=== PATIENT | female | born 1950 | race Caucasian/White ===

== ENCOUNTER 2021-01-31 23:23 | Observation (INO) | payer MEDICARE, OTHER, SELFPAY ==
--- NOTE | 2021-01-31 23:33 | ECG_ITS ---
Measurements Intervals [place] Rate: 71 P: [place]: 0 QRS: 3 QRSD: 89 T: -6 QT: 357 QTc: 389 Interpretive Statements ATRIAL FIBRILLATION BORDERLINE ST-T WAVE ABNORMALITY- INFERIOR LEADS BASELINE ARTIFACT- I, II, III, AVR, AVL, AVF, V1-V6 ABNORMAL ECG Electronically Signed On 02-01-2021 6:29:06 CDT by Joseph Jay D.O.
[2021-01-31 23:54] VITALS: BP 130/77; PULSE 81; RESP 16; TEMP 36.6; O2SAT 97
[2021-02-01] VITALS (8 sets, daily range): BP systolic 92–110; BP diastolic 45–80; PULSE 60–81; RESP 16–20; TEMP 36.2–36.4; O2SAT 96–98; BMI 42.2
[2021-02-01] MEDS: SODIUM CHLORIDE 0.9% IV 500 ML 999 ML IV CONT (00:34)
[2021-02-01] MEDS: ASPIRIN 325 MG ENTERIC TABLET PO (00:34)
[2021-02-01 00:43] LABS: Basophils Absolute Auto 0.06 K/mm3 (0.00-0.10); Basophils Percent Auto 0.5 % (0.0-1.0); Eosinophils Absolute Auto 0.07 K/mm3 (0.02-0.50); Eosinophils Percent Auto 0.6 % (1.0-6.0); Hematocrit 44.3 % (35.0-42.0); Hemoglobin 14.7 g/dL (11.7-13.8); Immature Granulocyte Absolute 0.04 K/mm3 (0.00-0.00); Immature Granulocyte Percent A 0.3 % (0.0-0.0); Lymphocytes Absolute Auto 2.32 K/mm3 (1.10-4.50); Lymphocytes Percent Auto 19.4 % (18.0-42.0); Mean Corpuscular HGB Conc 33.2 g/dL (32.0-36.0); Mean Corpuscular Hemoglobin 30.2 pg (27.0-31.0); Mean Platelet Volume 10.1 fl (9.2-11.8); Monocytes Absolute Auto 0.69 K/mm3 (0.10-0.90); Monocytes Percent Auto 5.8 % (2.0-11.0); Neutrophils Absolute Auto 8.8 K/mm3 (1.7-7.2); Neutrophils Percent Auto 73.4 % (50.0-70.0); Platelet Count Result 337 K/mm3 (150-420); Red Blood Count 4.87 M/mm3 (4.20-5.40); Red Cell Distribution Width 14.3 % (11.6-14.4)
[2021-02-01 01:10] LABS: Alanine Aminotransferase 33 U/L (14-59); Albumin Level 4.1 g/dL (3.4-5.0); Alkaline Phosphatase 109 U/L (46-116); Anion Gap 13 mmol/L (8-16); Aspartate Amino Transferase 27 U/L (15-37); Bilirubin,Total 0.3 mg/dL (0.00-1.00); Blood Urea Nitrogen 24 mg/dL (7-18); Calcium 9.6 mg/dL (8.5-10.1); Carbon Dioxide 25 mmol/L (21-32); Chloride 100 mmol/L (98-108); Estimated CRCL calculation 41 ml/min; Estimated Glomerular Filt Rate 36; Ethanol < 3 mg/dL (0-6); Glucose 111 mg/dL (70-99); NT Pro B Type Natriuretic Pept 403 pg/mL (0-125); Osmolality Calculated 291 mOsm/kg (285-295); Potassium 4.3 mmol/L (3.5-5.1); Sodium 138 mmol/L (136-145); Thyroid Stimulating Hormone 5.34 uIU/mL (0.36-3.74); Total Protein 8.5 g/dL (6.4-8.2); Troponin I 6.5 ng/L (0.00-60.4)
[2021-02-01 01:45] LABS: Amphetamine Screen Urine Negative (Negative); Barbiturate Screen Urine Negative (Negative); Benzodiazepines Screen Urine Negative (Negative); Cannabinoid Screen Urine Negative (Negative); Cocaine Screen Urine Negative (Negative); Methadone Screen Urine Negative (Negative); Opiate Screen Urine Negative (Negative); Phencyclidine Screen Urine Negative (Negative)
--- NOTE | 2021-02-01 02:00 | ECG_ITS ---
Measurements Intervals [place] Rate: 78 P: [place]: 0 QRS: 10 QRSD: 88 T: -9 QT: 384 QTc: 438 Interpretive Statements ATRIAL FIBRILLATION NONSPECIFIC ST & T-WAVE ABNORMALITY- ANT/INF LEADS BASELINE ARTIFACT- I, III, AVL, AVF ABNORMAL ECG Electronically Signed On 02-01-2021 7:29:01 CDT by Joseph Jay D.O.
--- NOTE | 2021-02-01 02:18 | ED.ARRPALP ---
HPI - Arrhythmia/Palpitations General Chief Complaint: Arrhythmia/Palpitations Stated Complaint: high blood presser Time Seen by Provider: 01/31/21 23:25 Source: patient, family and RN notes reviewed Mode of arrival: ambulatory Limitations: no limitations History of Present Illness complaint: skipped beats , palpitations and irregular heart beat Onset (ago): hour(s) (2) Duration: constant Severity: moderate Context: occurred during rest Associated symptoms: denies other symptoms Treatments prior to arrival: other (none) Related Data Home Medications Medication Instructions Recorded Confirmed amlodipine 10 mg PO DAILY 01/31/21 01/31/21 atenolol 25 mg PO DAILY 01/31/21 01/31/21 hydrochlorothiazide 25 mg PO DAILY 01/31/21 01/31/21 lisinopril 20 mg PO DAILY 01/31/21 01/31/21 lovastatin 20 mg PO DAILY 01/31/21 01/31/21 olmesartan 40 mg PO DAILY 01/31/21 01/31/21 Allergies Allergy/AdvReac Type Severity Reaction Status Date / Time No Known Allergies Allergy Verified 01/31/21 23:50 Review of Systems Review of Systems: All systems reviewed & are unremarkable except as noted in HPI and below Constitutional: Constitutional: Reports as per HPI and Reports no additional constitutional complaints Eyes: Eyes: Reports as per HPI and Reports no additional eye complaints ENT: Reports system reviewed and no additional complaints, except as documented and Reports as per HPI Cardiovascular: Cardiovascular: Reports as per HPI and Reports no additional cardiovascular complaints Comments: irregular HR Respiratory: Respiratory: Reports as per HPI and Reports no additional respiratory complaints Gastrointestinal: Gastrointestinal: Reports as per HPI and Reports no additional gastrointestinal complaints Genitourinary: Genitourinary: Reports no additional female genitourinary complaints and Reports as per HPI Musculoskeletal: Musculoskeletal: Reports no additional musculoskeletal complaints and Reports as per HPI Integumentary/Breasts: Skin/Breast: Reports system reviewed and no additional complaints, except as docu and Reports as per HPI Neurologic: Reports system reviewed and no additional complaints, except as documented and Reports as per HPI Psychiatric: Psychiatric: Reports no additional psychiatric complaints and Reports as per HPI Endocrine: Endocrine: Reports no additional endocrine complaints and Reports as per HPI Hematologic/Lymphatic: Hematologic/Lymphatic: Reports no additional hematologic/lymphatic complaints and Reports as per HPI Allergic/Immunologic: Allergic/Immunologic: Reports no additional allergic/immunologic complaints and Reports as per [facility] Past Medical History Medical History Chest pain at rest Social History Social History Smoking status: Never smoker Alcohol intake: never Substance use: never Substance use type: does not use Gender identity (if verbalized by the patient): Female Spiritual care concerns: No Exam Const: General: no acute distress and alert Nutritional Appearance: obese Orientation/consciousness: patient oriented x3 Limitations: no limitations HENMT: Ears: external ears normal and TM's normal bilaterally General nose exam: Normal external nose present and Normal nares present Mouth: Yes lip normal and Yes moist mucous membranes Teeth and gingiva: dentition normal Eyes: Conjunctivae: conjunctivae normal Pupils: Equal, round and reactive pupils present EOM: EOMs intact bilaterally Neck: Neck: normal visual inspection and no lymphadenopathy Chest: Chest palpation & inspection: normal inspection of the chest Resp: Effort & Inspection: normal respiratory effort Auscultation: clear to auscultation bilaterally Cardio: Rhythm: abnormal rhythm : General: Yes bladder normal to palpation and Yes no CVA tenderness Back/Spine/Pelvis: Back: no
--- NOTE | 2021-02-01 02:26 | PC.NURSE ---
Pt to be 23 hr obs to Rm 208, monitor continues to show A-fib, VSS, pt resting.
--- NOTE | 2021-02-01 04:48 | ADMGEN ---
This patient, Franchesca Blake, was admitted to 2nd Floor Room 208-2 at 0300. Patient oriented to hospital policies and general routines including ID bracelet, bed and alarms, visiting hours, pain management, procedures, bathroom and other care routines, personal items, smoking policy, room service/diet, and visiting hours. Information on how to activate the Rapid Response Team has been discussed. Patient are encouraged to report perceived risks to care and to ask questions if they do not understand what they are told or what they should do. Patient able to ambulate independently in room. A/O x4. IV present to left hand, 20g. Denies any pain or SOB. Initiated telemetry, current rate 69 Afib.
--- NOTE | 2021-02-01 04:50 | PC.NURSE ---
Patient valuable sheet filled out on paper form and placed in chart.
--- NOTE | 2021-02-01 05:10 | PC.NURSE ---
Dr Gaytan notified of patient's temp being 101.3 with new orders received.
[2021-02-01 05:52] LABS: Basophils Absolute Auto 0.04 K/mm3 (0.00-0.10); Basophils Percent Auto 0.6 % (0.0-1.0); Eosinophils Absolute Auto 0.02 K/mm3 (0.02-0.50); Eosinophils Percent Auto 0.3 % (1.0-6.0); Hematocrit 40.5 % (35.0-42.0); Hemoglobin 13.3 g/dL (11.7-13.8); Immature Granulocyte Absolute 0.02 K/mm3 (0.00-0.00); Immature Granulocyte Percent A 0.3 % (0.0-0.0); Lymphocytes Absolute Auto 1.58 K/mm3 (1.10-4.50); Lymphocytes Percent Auto 21.9 % (18.0-42.0); Mean Corpuscular HGB Conc 32.8 g/dL (32.0-36.0); Mean Corpuscular Hemoglobin 29.9 pg (27.0-31.0); Mean Platelet Volume 10.6 fl (9.2-11.8); Monocytes Absolute Auto 0.46 K/mm3 (0.10-0.90); Monocytes Percent Auto 6.4 % (2.0-11.0); Neutrophils Absolute Auto 5.1 K/mm3 (1.7-7.2); Neutrophils Percent Auto 70.5 % (50.0-70.0); Platelet Count Result 301 K/mm3 (150-420); Red Blood Count 4.45 M/mm3 (4.20-5.40); Red Cell Distribution Width 14.3 % (11.6-14.4); White Blood Count 7.2 K/mm3 (4.8-10.8)
[2021-02-01 06:14] LABS: Alanine Aminotransferase 30 U/L (14-59); Albumin Level 3.4 g/dL (3.4-5.0); Alkaline Phosphatase 91 U/L (46-116); Anion Gap 12 mmol/L (8-16); Aspartate Amino Transferase 20 U/L (15-37); Bilirubin,Total 0.3 mg/dL (0.00-1.00); Blood Urea Nitrogen 19 mg/dL (7-18); Carbon Dioxide 25 mmol/L (21-32); Chloride 104 mmol/L (98-108); Estimated CRCL calculation 46 ml/min; Estimated Glomerular Filt Rate 41; Free T4 Free Thyroxine 1.02 ng/dL (0.76-1.46); Glucose 106 mg/dL (70-99); Osmolality Calculated 294 mOsm/kg (285-295); Potassium 4.4 mmol/L (3.5-5.1); Sodium 141 mmol/L (136-145); Total Protein 7.2 g/dL (6.4-8.2)
[2021-02-01] MEDS: LOVASTATIN 20 MG TABLET PO (08:41)
[2021-02-01] MEDS: ENOXAPARIN 40 MG/0.4 ML SYRINGE SUB-Q (08:41)
[2021-02-01] MEDS: amLODIPine BESYLATE 5 MG TABLET 10 MG PO (08:42)
[2021-02-01] MEDS: hydroCHLOROthiazide 25 MG TABLET PO (08:42)
[2021-02-01] MEDS: OLMESARTAN MEDOXOMIL 20 MG TABLET 40 MG PO (08:42)
[2021-02-01] MEDS: atenoloL 25 MG TABLET PO (08:43)
[2021-02-01] MEDS: lisinopriL 20 MG TABLET PO (08:43)
[2021-02-01 10:42] LABS: Partial Thromboplastin Time 27.7 SEC (23.90-30.70); Prothrombin Time 10.6 Seconds (9.50-12.10)
[2021-02-01] MEDS: LEVOTHYROXINE SODIUM 100 MCG, LEVOTHYROXINE SODIUM 25 MCG 125 MCG PO (11:43)
[2021-02-01] MEDS: ENOXAPARIN 100 MG/ML SYRINGE 72 MG SUB-Q (11:44)
--- NOTE | 2021-02-01 13:37 | PM.SD2 ---
Same Day Admit/Disch: HPI History of Present Illness Chief complaint: AFIB HYPOTHYROID Narrative: Franchesca Blake is a 70 year old female that presented to emergency department per patient she just did not feel right and originally thought that her blood pressure was elevated. She has a past medical history of chest pain at rest hypertension and HDL. According to patient yesterday she just did not feel right she was not able to pinpoint exactly what she meant by that . She notes that most people think she is crazy when she tells him that she can tell when something is wrong with her body. She did note that she checked her blood pressure and it was elevated on able to tell me the exact numbers she also notes that her heart rate was elevated she notes it was 89 I informed patient that 89 is within normal limits. Patient notes that in the past when she felt different she will call and we will continue and feel better this time she did so and did not improve. This is when she decided to come to our emergency department. EKG indicated that she was A. fib with a heart rate of 78, WBCs 12.0, hemoglobin 14.7, hematocrit 44.3, platelet 337, PT 10.6, INR 1.0, sodium 138, potassium 4.3, BUN 24, creatinine 1.43, liver function test within normal limit, troponin 6.5, BUN 4 3, TSH 5.34 new onset A. fib with acute kidney injury and newly diagnosed hypothyroidism. Spoke with Dr. Roldan patient has an appointment today at 3:00 she will discharge with Lovenox weightbase and warfarin 5 mg follow-up PT/INR in 1 week. She will also discharged with Synthroid and repeat TSH within 6 weeks with results going to her primary care physician and her vendor relationship manager. I did talk to Dr. Bee with recommendation also called her primary care physician and updated his nurse on patient's current condition. The patient denies SOB, CP, palpitation, extremity numbness, lightheadedness, dizziness, constipation, diarrhea, chills, or fever. Patient notes her situation has improved and she is anxious for discharge PMF Past Medical History Medical History Chest pain at rest Family History Family History (Updated 02/01/21 @ 13:55 by ZAIRA Armstrong) Other Family history non-contributory Social History Social History Smoking status: Never smoker Alcohol intake: never Substance use: never Substance use type: does not use Gender identity (if verbalized by the patient): Female Spiritual care concerns: No Same Day Admit/Disch: Med Pre-admit Medications Home Medications Medication Instructions Recorded Confirmed Type amlodipine 10 mg PO DAILY 01/31/21 01/31/21 History atenolol 25 mg PO DAILY 01/31/21 01/31/21 History hydrochlorothiazide 25 mg PO DAILY 01/31/21 01/31/21 History lovastatin 20 mg PO DAILY 01/31/21 01/31/21 History olmesartan 40 mg PO DAILY 01/31/21 01/31/21 History enoxaparin [Lovenox] 112 mg SUBCUT Q12HR 10 Days 02/01/21 Rx #14.934 ml levothyroxine [Synthroid] 125 mcg PO DAILY@0630 90 Days #90 02/01/21 Rx tablet lisinopril 5 mg PO DAILY #30 tablet 02/01/21 Rx warfarin 5 mg PO DAILY #20 tablet 02/01/21 Rx Exam Narrative: GENERAL: This is a well-nourished, well-developed patient, in no apparent distress. HEAD: normocephalic, atraumatic. EYES: PERRL. Sclera clear/white. Vision is grossly intact. EARS: External ears normal, auditory canals clear and without drainage, TMs normal without perforation. Hearing grossly intact. NOSE: External nose normal with no obvious nasal discharge, nares without redness, no rhinorrhea. THROAT: Mucous membranes moist, posterior pharynx clear. NECK: Neck supple, non-tender without lymphadenopathy, masses or thyromegaly. CARDIOVASCULAR: Regular rate and rhythm without murmurs, gallops, or rubs. RESPIRATORY: Clear to auscultation. Breath sounds equal bilaterally. No wheezes, rales, or rhonchi. G
--- NOTE | 2021-02-01 14:30 | ECHO_ITS ---
Patient Info Name: Franchesca Blake Age: 70 years : 1950 Gender: Female Ht: 64 in Wt: 245 lbs BSA: 2.30 m2 HR: 57 bpm BP: 92 / 45 mmHg Technical Quality: Good Exam Date: 02/01/2021 1:39 PM Exam Location: [facility] Patient Status: Inpatient Admit Date: 02/01/2021 Staff Ordering Physician: Mahamed Sanchez Vacation Guide: Chetan Ibarra RDCS, RT Attending Provider: Camila Gaytan MD Referring Physician: Daniel MCGEE; Exam Type: CA echo doppler color flow Study Info Indications I48.1 - Persistent atrial fibrillation Complete two-dimensional, color flow and Doppler transthoracic echocardiogram is performed. Strain analysis performed. Summary 1. Complete two-dimensional, color flow and Doppler transthoracic echocardiogram is performed. 2. Left ventricular chamber dimension is normal. 3. Left ventricular systolic function is normal, estimated at 65-70%. 4. The left ventricular diastolic function is normal. 5. E/e' 7 is not elevated. 6. Global longitudinal strain is normal at -19.1%. 7. There is trace aortic valve regurgitation. 8. There is trace tricuspid valve regurgitation. 9. No pulmonary hypertension, estimated pulmonary arterial systolic pressure is 28 mmHg. Left Ventricle E/e' 7 is not elevated. Global longitudinal strain is normal at -19.1%. Left ventricular chamber dimension is normal. Left ventricular systolic function is normal, estimated at 65-70%. The left ventricular diastolic function is normal. Right Ventricle Right ventricular systolic function is normal and with normal TAPSE 2.6 cm.. Right ventricular chamber dimension is normal. Left Atria Left atrial chamber dimension is normal. Right Atria Right atrial chamber dimension is normal. Aortic Valve The aortic valve is trileaflet. There is no aortic valve stenosis. There is trace aortic valve regurgitation. Pulmonic Valve There is no pulmonic regurgitation. Mitral Valve There is no mitral valve stenosis. There is no mitral valve regurgitation. Tricuspid Valve There is trace tricuspid valve regurgitation. No pulmonary hypertension, estimated pulmonary arterial systolic pressure is 28 mmHg. Pericardium/Pleural There is no pericardial effusion. Inferior Vena Cava Normal inferior vena cava with >50% collapse upon inspiration consistent with normal right atrial pressure, 5 mmHg. Aorta The aortic root size at the sinus of Valsalva is normal. Left Ventricular Outflow Tract Name Value Normal LVOT 2D LVOT Diameter 2.0 cm LVOT Doppler LVOT Peak Velocity 138 cm/s LVOT Peak Gradient 8 mmHg LVOT Mean Gradient 4 mmHg LVOT VTI 31 cm LVOT VTI/AV VTI Ratio 0.7 LVOT Stroke Volume 98 ml Mitral Valve Name Value Normal MV Doppler
--- NOTE | 2021-02-01 14:58 | PC.NURSE ---
Patient discharged home transported by spouse via personal vehicle. Discharge instructions given and acknowledged understanding. IV site discontinued and removed prior to discharge. All personal property taken with patient and staff escorted patient to main entrance.
== END 2021-02-01 14:55 | disposition home or self-care (01) ==
LOC: CHSED 02-01 02:27 → CHS2ND 02-01 09:03
PROVIDERS: Nurse Practitioner; Admitting Provider Emergency Medicine; Emergency Provider Emergency Medicine; PCP Physician Assistant; Visit Provider Emergency Medicine
DX: I48.91 Unspecified atrial fibrillation (principal); I10 Essential (primary) hypertension; E03.9 Hypothyroidism, unspecified; E78.5 Hyperlipidemia, unspecified; R07.9 Chest pain, unspecified; Z79.899 Other long term (current) drug therapy
CPT/HCPCS: 36415; 80053; 80307; 83880; 84439; 84443; 84484; 85025; 85610; 85730; 93005; 93306; 96360; 96372; 99285; A9270; G0378; J1650; J7030; J7040

== ENCOUNTER 2021-02-05 08:11 | Outpatient (CLI) | payer MEDICARE, SELFPAY ==
[2021-02-05 08:35] LABS: INR 2.4; Prothrombin Time 24.4 Seconds (9.50-12.10)
== END 2021-02-05 08:12 | disposition home or self-care (01) ==
LOC: CHSLAB 08:14
PROVIDERS: PCP Physician Assistant; Visit Provider Internal Medicine Cardiovascular Disease
DX: I48.0 Paroxysmal atrial fibrillation (principal)
CPT/HCPCS: 36415; 85610

== ENCOUNTER 2021-02-12 08:10 | Outpatient (CLI) | payer MEDICARE, SELFPAY ==
[2021-02-12 08:55] LABS: INR 4.7; Prothrombin Time 46.5 Seconds (9.50-12.10)
[2021-02-12 11:11] LABS: Thyroid Stimulating Hormone Reflex 0.45 u/IU/mL (0.36-3.74)
== END 2021-02-12 08:11 | disposition home or self-care (01) ==
LOC: CHSLAB 08:12
PROVIDERS: PCP Physician Assistant; Visit Provider Nurse Practitioner
DX: I48.91 Unspecified atrial fibrillation (principal); E03.9 Hypothyroidism, unspecified
CPT/HCPCS: 36415; 84443; 85610

== ENCOUNTER 2021-02-18 07:53 | Outpatient (CLI) | payer MEDICARE, OTHER, SELFPAY ==
--- NOTE | 2021-03-14 14:55 | WPDSLEEPSTUD ---
Sleep Study Date of Study: 02/18/21 Ordering Provider: Joseph Jay DO Interpreting Physician: Liz Khalil MD Sleep Study Type: Polysomnogram Height: 1.63 m Weight: 106.594 kg Body Mass Index: 40.3 Neck Circumference (inches): 15 [place]: 4 Reason for Sleep Study Hypersomnia Sleep History Franchesca Blake is a 70 year old female with recent paroxysmal atrial fibrillation. She was suspected to have obstructive sleep apnea as a contributing factor. She also has hypertension and dyslipidemia. She does not awaken at night feeling short of breath, does not awaken at night with heartburn, belching or coughing. She rarely snores and is never loud enough that others complain about it. She does not have trouble sleeping with a cold. She does not wake up gasping for breath at night. She rarely has breathing problems at night observed by others. She does not sweat excessively at night. She does not notice her heart pounding or beating irregularly at night. She rarely falls asleep during the day, never involuntarily never while driving. She does not have loss of muscle tone with strong emotion. She does not have daytime difficulties due to excessive sleepiness, currently is retired. She does not feel paralyzed on waking or falling asleep. She rarely has vivid dreamlike scenes upon awakening or falling asleep. She does not feel afraid to go to sleep. She rarely has nightmares, rarely remembers her dreams, rarely has racing thoughts. She never feels sad or depressed. She rarely has anxiety. She does not have muscular tension, does not notice parts her body jerking and she does not kick at night. She does not have crawling and aching feelings in her legs. She denies any kind of leg pain at night. She does not have morning jaw pain. She rarely grinds her teeth during sleep. She is not bothered by pain during the day, is not awakened by pain at night. She does not wake up feeling stiff the morning with sore achy muscles are pain in the neck and spine. She does have palpitations. Normal bedtime is between 10:30 p.m. and 11:00 p.m. falling asleep within a few minutes, waking 2-3 times at night to urinate. She is able to return to sleep within 3 minutes. She wakes in the morning between 730 and 8:00 a.m.. Weekend schedule is the same. She estimates getting 6-7 hours of sleep at night. she takes naps in the afternoon or evening. A short nap may be refreshing. Most the time she feels adequate on waking. She feels better in the evening compared to the morning. Habits: nonsmoker. Caffeine 1-2 servings per day. No alcohol or recreational drugs. [facility] Past Medical History Medical History (Updated 03/14/21 @ 15:01 by Liz Khalil MD) Chest pain at rest Dyslipidemia Hypertension Hypothyroidism PAF (paroxysmal atrial fibrillation) Family History Family History Other Family history non-contributory Social History Social History Smoking status: Never smoker Alcohol intake: never Substance use: never Substance use type: does not use Gender identity (if verbalized by the patient): Female Spiritual care concerns: No Medications Home Medications Medication Instructions Recorded Confirmed Type amlodipine 10 mg PO DAILY 01/31/21 02/01/21 History atenolol 25 mg PO DAILY 01/31/21 02/01/21 History hydrochlorothiazide 25 mg PO DAILY 01/31/21 02/01/21 History lovastatin 20 mg PO DAILY 01/31/21 02/01/21 History olmesartan 40 mg PO DAILY 01/31/21 02/01/21 History enoxaparin [Lovenox] 112 mg SUBCUT Q12HR 10 Days 02/01/21 02/01/21 Rx #14.934 ml levothyroxine [Synthroid] 125 mcg PO DAILY@0630 90 Days #90 02/01/21 02/01/21 Rx tablet lisinopril 5 mg PO DAILY #30 tablet 02/01/21 02/01/21 Rx warfarin 2.5 mg tablet 2.5 mg PO DAILY #30 tablet 02/23/21 Rx warfarin 5 mg tablet 5 mg PO DAILY #20 tablet 03/05/21
[2021-03-14 14:56] VITALS: BMI 40.3
== END 2021-02-19 05:51 | disposition home or self-care (01) ==
LOC: ANHCSM 07:57
PROVIDERS: PCP Physician Assistant; Visit Provider Internal Medicine Cardiovascular Disease
DX: G47.10 Hypersomnia, unspecified (principal)
CPT/HCPCS: 95810

== ENCOUNTER 2021-03-19 08:58 | Outpatient (CLI) | payer MEDICARE, SELFPAY ==
[2021-03-19 09:31] LABS: INR 4.7; Prothrombin Time 47.1 Seconds (9.50-12.10)
== END 2021-03-19 08:59 | disposition home or self-care (01) ==
LOC: CHSLAB 09:00
PROVIDERS: PCP Physician Assistant; Visit Provider Internal Medicine Cardiovascular Disease
DX: I48.0 Paroxysmal atrial fibrillation (principal)
CPT/HCPCS: 36415; 85610

== ENCOUNTER 2021-03-26 04:11 | Emergency (ER) | payer MEDICARE, OTHER, SELFPAY ==
[2021-03-26 04:11] VITALS: BP 153/96; PULSE 68; RESP 20; TEMP 36.2; O2SAT 97
--- NOTE | 2021-03-26 04:20 | ECG_ITS ---
Measurements Intervals [place] Rate: 78 P: [place]: 0 QRS: 1 QRSD: 98 T: -21 QT: 379 QTc: 432 Interpretive Statements ATRIAL FIBRILLATION NONSPECIFIC ST & T-WAVE ABNORMALITY- ANT/INF LEADS BASELINE ARTIFACT- III, AVF ABNORMAL ECG Electronically Signed On 03-26-2021 7:35:32 CDT by Joseph Jay D.O.
--- NOTE | 2021-03-26 04:37 | ED.ARRPALP ---
HPI - Arrhythmia/Palpitations General Chief Complaint: Arrhythmia/Palpitations Stated Complaint: Irregular heart beat Source: patient and family Mode of arrival: ambulatory History of Present Illness HPI narrative: this is a 70-year-old female presents with her with some feeling of palpitations, with no chest pain no shortness of breath her heart rate is stable although patient has and was diagnosed with atrial fibrillation back in January is currently on Coumadin, and then recently saw her manager tax that told her that she was atrial fibrillation. Patient is not used to the fluttering in her chest, her heart rate is stable between 70 and 90 with normal blood pressure no shortness of breath no chest pain no abdominal pain no peripheral edema no fever chills. complaint: palpitations Onset (ago): month(s) Related Data Home Medications Medication Instructions Recorded Confirmed amlodipine 10 mg PO DAILY 01/31/21 03/26/21 hydrochlorothiazide 25 mg PO DAILY 01/31/21 03/26/21 lovastatin 20 mg PO DAILY 01/31/21 03/26/21 olmesartan 40 mg PO DAILY 01/31/21 03/26/21 atenolol 25 mg tablet 25 mg PO DAILY tablet 03/15/21 03/26/21 zolpidem 10 mg tablet 10 mg PO ONCE tablet 03/16/21 03/26/21 Allergies Allergy/AdvReac Type Severity Reaction Status Date / Time No Known Allergies Allergy Verified 03/15/21 15:10 Review of Systems Review of Systems: All systems reviewed & are unremarkable except as noted in HPI and below PMFSH Past Medical History Medical History Chest pain at rest Dyslipidemia Hypertension Hypothyroidism PAF (paroxysmal atrial fibrillation) Family History Family History Other Family history non-contributory Social History Social History Smoking status: Never smoker Alcohol intake: never Substance use: never Substance use type: does not use Gender identity (if verbalized by the patient): Female Spiritual care concerns: No Exam Const: General: no acute distress and alert Orientation/consciousness: patient oriented x3 HENMT: Head: normal to inspection Eyes: Conjunctivae: conjunctivae normal Pupils: Equal, round and reactive pupils present Neck: Neck: normal visual inspection, no lymphadenopathy and no meningeal signs Chest: Chest palpation & inspection: normal inspection of the chest Resp: Effort & Inspection: normal respiratory effort Cardio: Rate: regular rate Rhythm: abnormal rhythm GI: Auscultation: normal bowel sounds : General: Yes no CVA tenderness Skin: General skin exam: normal color Rashes: no rashes Neuro: General: patient oriented x3, moves all extremities and no meningeal signs Psych: Mental Status: mental status grossly normal Affect: normal affect Attitude: cooperative Course Course Emergency Course: Patient had a EKG performed which shows atrial fibrillation with a heart rate of 78, patient was concerned that she was feeling these some fluttering sensations and gave her reassurance that this is part of her atrial fibrillation. And to continue to follow with Cardiology and have her labs drawn for her PT INR determine what dose of Coumadin she should be on. Critical Care Time Critical Care Time Critical Care Time: No Discharge Plan Discharge Clinical Impression: Atrial fibrillation Patient Disposition: Home, Self-Care Condition: Stable Instructions: Antibiotic Form, A-fib (Atrial Fibrillation) (ED) Additional Instructions: Advised to continue current medical regimen, and follow with Cardiology for further evaluation and treatment and obtain PT INR as scheduled. Prescriptions: No Action amlodipine 10 mg tablet 10 mg PO DAILY RF: 0 hydrochlorothiazide 25 mg tablet 25 mg PO DAILY RF: 0 lovastatin 20 mg tablet 20 mg PO DAILY RF: 0 olme
[2021-03-26 04:42] VITALS: PULSE 68
[2021-03-26 04:44] VITALS: BP 123/78; PULSE 65; RESP 20; TEMP 36.2; O2SAT 98
== END 2021-03-26 04:50 | disposition home or self-care (01) ==
PROVIDERS: Emergency Provider Emergency Medicine; PCP Physician Assistant
DX: I48.91 Unspecified atrial fibrillation (principal); E78.5 Hyperlipidemia, unspecified; I10 Essential (primary) hypertension; E03.9 Hypothyroidism, unspecified
CPT/HCPCS: 36415; 85610; 93005; 99282; 99283

== ENCOUNTER 2021-05-07 08:15 | Outpatient (RCR) | payer MEDICARE, SELFPAY ==
[2021-02-16 11:13] LABS: Prothrombin Time 70.6 Seconds (9.50-12.10)
[2021-02-16 11:36] LABS: INR 7.3
[2021-02-23 08:18] LABS: INR 1.1; Prothrombin Time 11.6 Seconds (9.50-12.10)
[2021-02-26 08:20] LABS: INR 1.2; Prothrombin Time 12.9 Seconds (9.50-12.10)
[2021-03-05 07:35] LABS: INR 2.5; Prothrombin Time 25.4 Seconds (9.50-12.10)
[2021-03-12 08:33] LABS: INR 3.5; Prothrombin Time 35.2 Seconds (9.50-12.10)
[2021-03-26 09:24] LABS: INR 1.6; Prothrombin Time 17.1 Seconds (9.50-12.10)
[2021-04-02 08:46] LABS: Prothrombin Time 20.7 Seconds (9.50-12.10)
[2021-04-16 08:47] LABS: INR 2.1; Prothrombin Time 21.8 Seconds (9.50-12.10)
[2021-05-07 08:41] LABS: INR 2.3; Prothrombin Time 23.3 Seconds (9.50-12.10)
== END 2021-05-17 23:59 | disposition home or self-care (01) ==
LOC: CHSLAB 08:15
PROVIDERS: PCP Physician Assistant; Visit Provider Internal Medicine Cardiovascular Disease
DX: I48.0 Paroxysmal atrial fibrillation (principal)
CPT/HCPCS: 36415; 85610

== ENCOUNTER 2021-08-09 07:58 | Outpatient (RCR) | payer MEDICARE, SELFPAY ==
[2021-05-28 09:42] LABS: INR 2.5; Prothrombin Time 25.5 Seconds (9.50-12.10)
[2021-06-21 08:37] LABS: INR 1.7; Prothrombin Time 17.6 Seconds (9.50-12.10)
[2021-06-28 09:19] LABS: Prothrombin Time 20.9 Seconds (9.50-12.10)
[2021-07-12 08:22] LABS: INR 2.2; Prothrombin Time 22.6 Seconds (9.50-12.10)
[2021-08-09 09:11] LABS: INR 2.4; Prothrombin Time 24.5 Seconds (9.50-12.10)
== END 2021-08-26 23:59 | disposition home or self-care (01) ==
LOC: CHSLAB 07:58
PROVIDERS: PCP Physician Assistant; Visit Provider Internal Medicine Cardiovascular Disease
DX: I48.0 Paroxysmal atrial fibrillation (principal)
CPT/HCPCS: 36415; 85610

== ENCOUNTER 2021-10-12 14:17 | Outpatient (CLI) | payer MEDICARE, OTHER, SELFPAY ==
--- NOTE | 2021-10-23 20:43 | WPDHOMESLEEP ---
Sleep Study - Home Unattended Date of Study: 10/12/21 Ordering Provider: Joseph Jay DO Interpreting Provider: Liz Khalil MD Home Sleep Study Type: Apnea Link Air Height: 1.63 m Weight: 107.048 kg Body Mass Index: 40.5 Neck Circumference (inches): 17 [place]: 2 Reason for Sleep Study ATRIAL FIBRILLATION, CONCERN FOR POSSIBLE SLEEP APNEA. Sleep History Franchesca Blake is a 71-year-old female who was referred for a home sleep test by her lsw. She does not awaken from sleep feeling short of breath or awaken with heartburn, belching or coughing. She rarely snores and this is never loud enough that others complain about it. She does not have trouble sleeping with a cold. She does not gasp for breath at night. She does not have breathing problems at night observed by others. She rarely sweats excessively at night. She does not notice her heart pounding or beating irregularly at night. She rarely falls asleep during the day, never falls asleep involuntarily or while driving. she does not have loss of muscle tone with strong emotion. She does not have daytime difficulties due to excessive sleepiness. She does not feel paralyzed on waking or falling asleep nor does she have vivid dreamlike scenes upon awakening or falling asleep. She does not feel afraid to go to sleep. She does not have nightmares. She rarely remembers her dreams. She does not have racing thoughts. She does not have feelings of sadness or depression. She rarely has anxiety. She does not have muscular tension. She does not notice parts of her body jerking. She does not kick at night or have crawling or aching feelings in her legs. She does not have any kind of leg pain at night. She does not have morning jaw pain. She does not grind her teeth during sleep. She is not bothered by pain during the day nor she awakened by pain at night. She does not wake up feeling stiff the morning with sore achy muscles or pain in the neck and spine. She has headaches. Normal bedtime is 11:00 p.m. falling asleep within 10 minutes, waking 2-3 times during the night to go to the bathroom. She is able to return to sleep within 2-3 minutes. She wakes in the morning at 7:30 a.m.. Her schedule is the same on weekends. She takes naps in the afternoon or evening. A short nap of 10 or 15 minutes may be refreshing. She feels better in the morning compared to other times of day. Habits: Never smoked tobacco. caffeine 1-2 servings a day. No alcohol or recreational drugs. [facility] Past Medical History Medical History Chest pain at rest Dyslipidemia Hypertension Hypothyroidism PAF (paroxysmal atrial fibrillation) Family History Family History Other Family history non-contributory Social History Social History Smoking status: Never smoker Alcohol intake: never Substance use: never Substance use type: does not use Gender identity (if verbalized by the patient): Female Spiritual care concerns: No Medications Home Medications Medication Instructions Recorded Confirmed Type amlodipine 10 mg PO DAILY 01/31/21 09/20/21 History hydrochlorothiazide 25 mg PO DAILY 01/31/21 09/20/21 History lovastatin 20 mg PO DAILY 01/31/21 09/20/21 History olmesartan 40 mg PO DAILY 01/31/21 09/20/21 History levothyroxine [Synthroid] 125 mcg PO DAILY@0630 90 Days #90 02/01/21 09/20/21 Rx tablet warfarin 5 mg tablet 5 mg PO DAILY #20 tablet 03/05/21 09/20/21 Rx zolpidem 10 mg tablet 10 mg PO ONCE tablet 03/16/21 09/20/21 History warfarin 1 mg tablet 1 mg PO DAILY #30 tablet 06/21/21 09/20/21 Rx warfarin 2.5 mg tablet See Rx Instructions .ROUTE 07/23/21 09/20/21 Rx .COMPLEX #30 tablet atenolol 25 mg tablet 50 mg PO DAILY tablet 09/20/21 09/20/21 History Sleep Procedure This test was perform
[2021-10-23 20:58] VITALS: BMI 40.5
== END 2021-10-13 10:10 | disposition home or self-care (01) ==
LOC: ANHCSM 14:18
PROVIDERS: PCP Physician Assistant; Visit Provider Internal Medicine Cardiovascular Disease
DX: G47.10 Hypersomnia, unspecified (principal); G47.33 Obstructive sleep apnea (adult) (pediatric)
CPT/HCPCS: 95806

== ENCOUNTER 2021-11-22 07:56 | Outpatient (RCR) | payer MEDICARE, SELFPAY ==
[2021-09-06 08:38] LABS: INR 2.7; Prothrombin Time 27.1 Seconds (9.50-12.10)
[2021-10-04 08:39] LABS: INR 2.6; Prothrombin Time 26.1 Seconds (9.50-12.10)
[2021-11-01 08:35] LABS: INR 2.1
[2021-11-22 08:25] LABS: Prothrombin Time 20.4 Seconds (9.50-12.10)
== END 2021-12-05 23:59 | disposition home or self-care (01) ==
LOC: CHSLAB 07:56
PROVIDERS: PCP Physician Assistant; Visit Provider Internal Medicine Cardiovascular Disease
DX: I48.0 Paroxysmal atrial fibrillation (principal)
CPT/HCPCS: 36415; 85610

== ENCOUNTER 2022-03-07 07:30 | Outpatient (RCR) | payer MEDICARE, SELFPAY ==
[2021-12-13 08:27] LABS: INR 2.1; Prothrombin Time 21.7 Seconds (9.50-12.10)
[2022-01-10 08:34] LABS: Prothrombin Time 20.9 Seconds (9.50-12.10)
[2022-02-07 08:15] LABS: INR 1.9; Prothrombin Time 19.8 Seconds (9.50-12.10)
[2022-02-22 08:31] LABS: Prothrombin Time 20.5 Seconds (9.50-12.10)
[2022-03-07 07:50] LABS: INR 2.1; Prothrombin Time 22.1 Seconds (9.50-12.10)
== END 2022-03-13 23:59 | disposition home or self-care (01) ==
LOC: CHSLAB 07:30
PROVIDERS: PCP Physician Assistant; Visit Provider Internal Medicine Cardiovascular Disease
DX: I48.0 Paroxysmal atrial fibrillation (principal); R79.1 Abnormal coagulation profile
CPT/HCPCS: 36415; 85610

== ENCOUNTER 2022-06-27 07:57 | Outpatient (RCR) | payer MEDICARE, SELFPAY ==
[2022-04-04 08:26] LABS: INR 2.1; Prothrombin Time 21.8 Seconds (9.50-12.10)
[2022-05-02 08:17] LABS: INR 2.3; Prothrombin Time 23.5 Seconds (9.50-12.10)
[2022-05-30 08:14] LABS: INR 2.4; Prothrombin Time 24.6 Seconds (9.50-12.10)
[2022-06-27 08:25] LABS: INR 2.4; Prothrombin Time 24.9 Seconds (9.50-12.10)
== END 2022-07-03 23:59 | disposition home or self-care (01) ==
LOC: CHSLAB 07:57
PROVIDERS: PCP Physician Assistant; Visit Provider Internal Medicine Cardiovascular Disease
DX: R79.1 Abnormal coagulation profile (principal)
CPT/HCPCS: 36415; 85610

== ENCOUNTER 2022-10-17 07:54 | Outpatient (RCR) | payer MEDICARE, SELFPAY ==
[2022-07-25 08:42] LABS: INR 2.5
[2022-08-22 08:19] LABS: INR 2.3; Prothrombin Time 23.8 Seconds (9.50-12.10)
[2022-09-19 08:12] LABS: INR 2.3; Prothrombin Time 23.5 Seconds (9.50-12.10)
[2022-10-17 08:27] LABS: INR 2.1; Prothrombin Time 21.4 Seconds (9.50-12.10)
== END 2022-10-23 23:59 | disposition home or self-care (01) ==
LOC: CHSLAB 07:54
PROVIDERS: PCP Physician Assistant; Visit Provider Internal Medicine Cardiovascular Disease
DX: R79.1 Abnormal coagulation profile (principal)
CPT/HCPCS: 36415; 85610

== ENCOUNTER 2023-02-13 07:30 | Outpatient (RCR) | payer MEDICARE, SELFPAY ==
[2022-11-15 08:42] LABS: INR 2.1; Prothrombin Time 21.4 Seconds (9.50-12.10)
[2022-12-12 08:39] LABS: INR 2.2; Prothrombin Time 22.9 Seconds (9.50-12.10)
[2023-01-09 08:02] LABS: INR 1.8; Prothrombin Time 19.3 Seconds (9.50-12.10)
[2023-01-23 08:37] LABS: INR 2.2
[2023-02-13 07:55] LABS: INR 2.4; Prothrombin Time 24.7 Seconds (9.50-12.10)
== END 2023-02-13 23:59 | disposition home or self-care (01) ==
LOC: CHSLAB 07:30
PROVIDERS: PCP Physician Assistant; Visit Provider Internal Medicine Cardiovascular Disease
DX: R79.1 Abnormal coagulation profile (principal)
CPT/HCPCS: 36415; 85610

== ENCOUNTER 2023-03-21 08:11 | Outpatient (CLI) | payer MEDICARE, OTHER, SELFPAY ==
--- NOTE | 2023-03-21 08:19 | ECG_ITS ---
Measurements Intervals [place] Rate: 55 P: 52 IL: 213 QRS: 64 QRSD: 92 T: 46 QT: 410 QTc: 395 Interpretive Statements SINUS BRADYCARDIA WITH FIRST DEGREE AV BLOCK LOW QRS VOLTAGE IN PRECORDIAL LEADS [QRS DEFLECTION < 1.0 mV IN CHEST LEADS] COMPARED TO ECG 03/26/2021 04:23:29 SINUS BRADYCARDIA NOW PRESENT FIRST DEGREE AV BLOCK NOW PRESENT Electronically Signed On 03-21-2023 18:51:59 CDT by Raisa Bender M.D.
== END 2023-03-21 08:12 | disposition home or self-care (01) ==
PROVIDERS: PCP Physician Assistant; Visit Provider Internal Medicine Cardiovascular Disease
DX: I48.0 Paroxysmal atrial fibrillation (principal); R00.1 Bradycardia, unspecified; I44.0 Atrioventricular block, first degree
CPT/HCPCS: 93005

== ENCOUNTER 2023-06-05 08:01 | Outpatient (RCR) | payer MEDICARE, SELFPAY ==
[2023-03-13 08:42] LABS: INR 2.4; Prothrombin Time 24.8 Seconds (9.50-12.10)
[2023-04-10 08:20] LABS: INR 2.7; Prothrombin Time 27.5 Seconds (9.50-12.10)
[2023-05-08 07:52] LABS: INR 2.1; Prothrombin Time 22.2 Seconds (9.50-12.10)
[2023-06-05 08:34] LABS: INR 2.4; Prothrombin Time 24.5 Seconds (9.50-12.10)
== END 2023-06-11 23:59 | disposition home or self-care (01) ==
LOC: CHSLAB 08:01
PROVIDERS: PCP Physician Assistant; Visit Provider Internal Medicine Cardiovascular Disease
DX: I48.0 Paroxysmal atrial fibrillation (principal)
CPT/HCPCS: 36415; 85610

== ENCOUNTER 2023-09-25 07:29 | Outpatient (RCR) | payer MEDICARE, OTHER, SELFPAY ==
[2023-07-03 09:04] LABS: INR 2.4; Prothrombin Time 24.7 Seconds (9.50-12.10)
[2023-07-31 07:47] LABS: INR 2.4; Prothrombin Time 24.4 Seconds (9.50-12.10)
[2023-08-28 07:32] LABS: INR 2.2; Prothrombin Time 22.5 Seconds (9.50-12.10)
[2023-09-25 08:13] LABS: INR 2.3; Prothrombin Time 23.3 Seconds (9.50-12.1)
== END 2023-10-01 23:59 | disposition home or self-care (01) ==
LOC: CHSLAB 07:29
PROVIDERS: PCP Physician Assistant; Visit Provider Internal Medicine Cardiovascular Disease
DX: I48.0 Paroxysmal atrial fibrillation (principal)
CPT/HCPCS: 36415; 85610

== ENCOUNTER 2024-01-01 07:13 | Outpatient (RCR) | payer MEDICARE, SELFPAY ==
[2023-10-23 08:22] LABS: Prothrombin Time 20.5 Seconds (9.50-12.1)
[2023-11-20 07:26] LABS: INR 1.7; Prothrombin Time 17.9 Seconds (9.50-12.1)
[2023-12-04 07:36] LABS: INR 2.1; Prothrombin Time 22.1 Seconds (9.50-12.1)
[2023-12-25 08:01] LABS: INR 1.8; Prothrombin Time 19.3 Seconds (9.50-12.1)
[2024-01-01 07:43] LABS: INR 2.1
== END 2024-01-21 23:59 | disposition home or self-care (01) ==
LOC: CHSLAB 07:13
PROVIDERS: PCP Physician Assistant; Visit Provider Internal Medicine Cardiovascular Disease
DX: I48.0 Paroxysmal atrial fibrillation (principal)
CPT/HCPCS: 36415; 85610

== ENCOUNTER 2024-04-15 07:10 | Outpatient (RCR) | payer MEDICARE, SELFPAY ==
[2024-01-22 07:50] LABS: Prothrombin Time 20.5 Seconds (9.50-12.1)
[2024-02-20 08:05] LABS: INR 2.3; Prothrombin Time 23.3 Seconds (9.50-12.1)
[2024-03-18 07:44] LABS: INR 2.2; Prothrombin Time 22.3 Seconds (9.50-12.1)
[2024-04-15 07:36] LABS: Prothrombin Time 20.9 Seconds (9.50-12.1)
== END 2024-04-21 23:59 | disposition home or self-care (01) ==
LOC: CHSLAB 07:10
PROVIDERS: PCP Physician Assistant; Visit Provider Internal Medicine Cardiovascular Disease
DX: I48.0 Paroxysmal atrial fibrillation (principal)
CPT/HCPCS: 36415; 85610

== ENCOUNTER 2024-08-05 08:01 | Outpatient (RCR) | payer MEDICARE, OTHER, SELFPAY ==
[2024-05-13 07:51] LABS: INR 1.8; Prothrombin Time 18.6 Seconds (9.50-12.1)
[2024-05-20 07:50] LABS: INR 2.4; Prothrombin Time 24.5 Seconds (9.50-12.1)
[2024-06-03 07:53] LABS: INR 2.5; Prothrombin Time 25.2 Seconds (9.50-12.1)
[2024-06-10 07:52] LABS: INR 2.2; Prothrombin Time 22.6 Seconds (9.50-12.1)
[2024-07-08 08:45] LABS: INR 2.6; Prothrombin Time 26.2 Seconds (9.50-12.1)
[2024-08-05 08:32] LABS: INR 2.1; Prothrombin Time 21.9 Seconds (9.50-12.1)
== END 2024-08-11 23:59 | disposition home or self-care (01) ==
LOC: CHSLAB 08:01
PROVIDERS: PCP Physician Assistant; Visit Provider Internal Medicine Cardiovascular Disease
DX: I48.91 Unspecified atrial fibrillation (principal)
CPT/HCPCS: 36415; 85610

== ENCOUNTER 2024-11-25 07:51 | Outpatient (RCR) | payer MEDICARE, OTHER, SELFPAY ==
--- OUTSIDE RECORDS SUMMARY | 2024-09-02 07:49 | XMS_ITS | Clinical Summary ---
Author Organization [facility] Address [address] M[place]an: Epic Prelude ADT [place] HERR[place] [address] Care Team Providers Care Director Of Adult Epilepsy Name Role Phone Unavailable Primary Care Provider Unavailabl e Allergies No known active allergies Medications LORazepam (ATIVAN) 0.5 mg tablet Take 0.5 mg by mouth every 6 hours as needed for Anxiety. 03/11/2018 Active pantoprazole (PROTONIX) 40 mg Tablet, Delayed Release (E.C.) Take 40 mg by mouth daily. 03/11/2018 Active olmesartan (BENICAR) 40 mg tablet Take 40 mg by mouth daily. 03/11/2018 Active hydroCHLOROthiaz lela 25 mg tablet Take 25 mg by mouth daily. 03/11/2018 Active lovastatin (MEVACOR) 20 mg tablet Take 20 mg by mouth daily with supper. 03/11/2018 Active lisinopriL (PRINIVIL) 20 mg tablet Take 20 mg by mouth daily. 03/11/2018 Active atenoloL (TENORMIN) 50 mg tablet Take 50 mg by mouth daily. 03/11/2018 Active amLODIPine (NORVASC) 10 mg tablet Take 10 mg by mouth daily. 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 Gender Identity Not on file Sexual Orientation Not on file Last Filed Vital Signs Vital Sign Reading Time Taken Comments Blood Pressure 169/99 03/11/2018 3:30 AM CDT Pulse 69 03/11/2018 3:30 AM CDT Temperature 36.6 C (97.9 F) 03/11/2018 2:40 AM CDT Respiratory Rate 20 03/11/2018 3:30 AM CDT Oxygen Saturation - - Inhaled Oxygen Concentration - - Weight 104.3 kg (230 lb) 03/10/2018 11:50 PM CDT Height 162.6 cm (5' 4) 03/10/2018 11:50 PM CDT Body Mass Index 39.48 03/10/2018 11:50 PM CDT Plan of Treatment Health Maintenance Due Date Last Done Comments DTAP/TDAP/TD VACCINES (1 - Tdap) 1971 BREAST CANCER SCREENING 1992 COLORECTAL SCREENING 1997 Colorectal Cancer Screening 1997 FIT-DNA Q 3 years 1997 FIT/FOBT Q 1 year 1997 Flex Sig/CT Colonography Q 5 years 1997 PNEUMOCOCCAL VACCINE 50+ YEARS (1 of 1 - PCV) 05/31/20 02 ZOSTER VACCINE (1 of 2) 2002 OSTEOPOROSIS SCREENING 2017 INFLUENZA VACCINE (#1) 2024 RSV VACCINE (60+ or ) (1 - 1-dose 75+ series) 2027
--- OUTSIDE RECORDS SUMMARY | 2024-09-02 07:49 | XMS_ITS | Clinical Summary ---
Author Organization [facility] Address [address] [place] [address] Phone Care Team Providers Care Hay Sorter Name Role Phone Unavailable Unavailable Unavailable Reason for Visit and Chief Complaint visit for: post op exam s/p lap yasmani; PATH Problems Includes: Problems addressed during this encounter and other active Problems All Visits Onset Date Resolved Date Provider Condition S tatus Gerd 08/13/2018 BEENA EDGE DO Active Last Documented On 9 2:08PM ; [facility] Essential Hypertension 08/13/2018 BEENA Taylor DO Active Last Documented On 9 2:16PM ; [facility] Plan of Treatment No Plan of Treatment Recorded Assessments Includes: Assessments from this encounter No Assessments Recorded Medical Equipment - Implanted Devices Includes: Current Devices No Medical Equipment Recorded Medications Includes: Medications discussed during this encounter and other current Medications New / Renewed during this visit BEENA EDGE DO on 08/29/2018 Colestid 1GM Oral Tablet Provider: BEENA EDGE DO 10 day supply: 40 tablet, 2 refills Diagnosis: Chronic cholecystitis 2 tablets twice a day Pharmacy: [facility] [address], [address] - Last Documented On 08/29/2018 1:42PM By BEENA EDGE DO ; [facility] Current Medications (continue as prescribed) Benicar 40MG Oral Tablet 08/13/2018 Provider: Diagnosis: 1 tab po daily Last Documented On 08/13/2018 1:44PM By CHUCK COTTER LPN ; [facility] Lisinopril 20MG Oral Tablet 08/13/2018 Provider: Diagnosis: 1 tab po daily Last Documented On 08/13/2018 1:46PM By CHUCK COTTER LPN ; [facility] hydroCHLOROthiazide 25MG Oral Tablet 08/13/2018 Prov ider: Diagnosis: 1 tab po daily Last Documented On 08/13/2018 1:56PM By CHUCK COTTER LPN ; [facility] Atenolol 50MG Oral Tablet 08/13/2018 Provider: Diagnosis: 1 tab po daily Last Documented On 08/13/2018 1:56PM By CHUCK COTTER LPN ; [facility] Glucosamine HCl Oral Tablet 08/13/2018 Provider: Diagnosis: 1 tab po daily Last Documented On 08/13/2018 1:58PM By CHUCK COTTER LPN ; [facility] Womens Multivitamin Oral Tablet 08/13/2018 Provider: Diagnosis: 1 tab po daily Last Documented On 08/13/2018 1:59PM By CHUCK COTTER LPN ; [facility] Calcium 600MG Oral Tablet 08/13/2018 Provider: Diagnosis: 1 tab po BID Last Documented On 08/13/2018 2:00PM By CHUCK COTTER LPN ; [facility] Lovastatin 20MG Oral Tablet 08/13/2018 Provider: Diagnosis: 1 tab po daily Last Documented On 08/13/2018 1:46PM By CHUCK COTTER LPN ; [facility] amLODIPine Besylate 10MG Oral Tablet 08/13/2018 Prov ider: Diagnosis: 1 tab po daily Last Documented On 08/13/2018 1:45PM By CHUCK COTTER LPN ; [facility] Past Medications on file Riley 5-325MG Oral Tablet 08/22/2018 - 08/24/2018 Provider: BEENA Roper Diagnosis: Chronic cholecys titis 1 every 6 hours as needed Last Documented On 08/22/2018 9:18AM By BEENA EDGE DO ; [facility] Medications Administered Includes: Administered Medications from this encounter No Administered Medications Recorded Vital Signs Includes: Vital Signs from this encounter Vital Name 08/29/2018 12:49P Blood Pressure Sitting R 149/85 Pulse Rate-Sitting (bpm) 83 Respiration Rate (breaths/min) 20 Temp-Tympanic (F) 98.3 Height (in) 64 Weight (lb) 237 Body Mass Index (kg/m2) 40.7 Body Surface Area (m2) 2.1 Last Documented: On 08/29/2018 12:50P M ; [facility] Results Includes: Results discussed during this encounter No Results Recorded For Specified Dates History of Present Illness Includes: History of Present Illness from this encounter No History of Present Illness Recorded Social History Description Last Updated Not a current smoker 08/13/2018 Last Documented On 9 12:49PM ; [facility] Not using alcohol 08/13/2018 Last Documented On 9 12:49PM ; [facility] Not using drugs 08/13/2018 Last Documented On 9 12:49PM ; [facility] Smoking status : Never smoker 08/13/2018 Last Documented On 9 12:49PM ; [facility] Procedures and Surgical History Surgical History Last Updated History of cholecystectomy - Laparoscopic for chronic cholecystitis with lithiasis/polyps 08/22/2018 Last Documented On 9 12:49PM ; [facility] Medical History Includes: Medical History addressed during this encounter Description Last Updated History of hypertension 08/13/2018 Last Documented On 9 12:49PM ; [facility] EGD 07/18/18 ~Colonoscopy 05/28/18 ~Tubal Ligation 1982 08/13/2018 Last Documented On 9 12:49PM ; [facility] Taking medication 08/13/2018 Last Documented On 9 12:49PM ; [facility] Family History Includes: Family History addressed during this encounter Description Last Updated Family medical history was unknown 08/13 Last Documented On 9 12:49PM ; [facility] Review of Systems Includes: Review of Systems from this encounter No Review of Systems Recorded Mental Status Includes: Mental Status from this encounter No Mental Status Recorded Functional Status Includes: Functional Status from this encounter No Functional Status Recorded Physical Exam Includes: Physical Exam from this encounter Allergies Includes: Active Allergies No Known Allergies Encounters Encounter Provider Location Date Check-In Time Check- Out Time Diagnosis POST OP VISIT BEENA EDGE DO [facility] 9 12:46PM 1:12PM Clinical Notes Includes: Clinical Notes from this encounter No Clinical Notes Recorded
--- OUTSIDE RECORDS SUMMARY | 2024-09-02 07:49 | XMS_ITS | Clinical Summary ---
Author Organization [facility] Address [address] [place] [address] Phone Care Team Providers Care Marketing Assistant Name Role Phone Ho Nazario Primary Care Provider [phone] Allergies No known active allergies Medications amLODIPine (NORVASC) 10 MG Tablet 06/26/2017 Active Olmesartan Medoxomil 40 MG Tablet 08/01/2017 Active pantoprazole (PROTONIX) 40 MG Tablet Delayed Response 07/25/2017 Active lisinopril (PRINIVIL, ZESTRIL) 20 MG Tablet 08/11/2017 Active LORazepam (ATIVAN) 0.5 MG Tablet Take 1 Tab by mouth every 6 hours as needed for Anxiety. 20 Tab 08/26/2017 Active lovastatin (MEVACOR) 20 MG Tablet Take 20 mg by mouth every evening. Active hydroCHLOROthiaz lela 25 MG Tablet Take 25 mg by mouth daily. Active atenolol (TENORMIN) 50 MG Tablet Take 50 mg by mouth daily. Active Social History Tobacco Use Types Packs/Day Years Used Date Smoking Tobacco: Passive Smo ke Exposure - Never Smoker Smokeless Tobacco: Never Alcohol Use Standard Drinks/Week Comments No 0 (1 standard drink = 0.6 oz pur e alcohol) Comments No Sex and Gender Information Value Date Recorded Sex Assigned at Not on file Legal Sex Female 10:11 PM CDT Gender Identity Not on file Sexual Orientation Not on file Last Filed Vital Signs Vital Sign Reading Time Taken Comments Blood Pressure 145/69 04/12/2018 10:31 AM CDT Pulse 55 04/12/2018 12:48 PM CDT Temperature 35.7 C (96.2 F) 04/12/2018 10:31 AM CDT Respiratory Rate 16 04/12/2018 12:48 PM CDT Oxygen Saturation 98% 04/12/2018 12:48 PM CDT Inhaled Oxygen Concentration - - Weight 104.3 kg (230 lb) 04/12/2018 10:31 AM CDT Height 162.6 cm (5' 4) 04/12/2018 10:31 AM CDT Body Mass Index 39.48 04/12/2018 10:31 AM CDT Plan of Treatment Health Maintenance Due Date Last Done Comments DEXA Bone Density 1952 Hepatitis C Virus (HCV) Screening 1952 TdaP Immunization 1952 Colonoscopy 1997 Cologuard 2002 Mammogram 2002 Pneumococcal Immunization (5 0+ years) (1 of 1 - PCV) 2002 Zoster Immunization (1 of 2) 2002 Colorectal Cancer Screening 04/13/2018 Immunochemical Fecal Occult Blood 04/12/2019 04/12/2018 Influenza Immunization (#1) 2024 SARS-COV-2 Immunization ( season) 2024 05/11/2021, 09/18/2020, 08/21/2020 Respiratory Syncytial Virus (RSV) Immunization (Adult) (1 - 1-dose 75+ series) 2027 Hepatitis B Immunization Aged Out No longer eligible based on patient's age to complete this topic Meningococcal Immunization (ACWY) Aged Out No longer eligible b ased on patient's age to complete this topic Rotavirus Immunization Aged Out No lo nger eligible based on patient's age to complete this topic Procedures Procedure Name Priority Date/Time Associated Diagnosis Comments STOOL, OCCULT BLOOD, DIAGNOSTIC, VIA GUAIAC STAT 04/12/2018 10:51 AM CDT from Last 3 Months or Most Recently Relevant to Health Maintenance Results * (ABNORMAL) Stool Occult Blood - Diagnostic (04/12/2018 10:51 AM CDT) OCCULT BLOOD DIAG, GI BLEED Positive(A ) Negative 04/12/2018 11:06 AM CDT [facility] Stool specimen (specimen) Non-Phlebotomy Collection / Unknown 04/12/2018 10:51 AM CDT 04/12/2018 10:59 AM CDT Gini Ba Page PAC BODY FLUIDS & STOOLS ORDERAB LES Final Result [facility] [address] [place] [address] from Last 3 Months or Most Recently Relevant to Health Maintenance Insurance [employer] Care Teams Marketing Assistant Relationship Specialty Start Date End Date Ho Nazario PAC [address] [place] [id number] PCP - General Physician Aeronautical Drafter 08/26/17
--- OUTSIDE RECORDS SUMMARY | 2024-09-02 07:49 | XMS_ITS | Clinical Summary ---
Author Organization [facility] Address [address] [place] [address] Care Team Providers Care Spinner Continuous Name Role Phone Unavailable Primary Care Provider Unavailabl e Source Comments [facility],non-owned Affiliates and Associated Physician Practices is amultiple site organization consisting of ambulatory clinics and hospital sitesin [place], [place], [place] and [place]. This disclosure is being madepursuant to the Care Everywhere program and may not contain all information available regarding this patient. Last updated 18.[facility] Social History Tobacco Use Types Packs/Day Years Used Date Smoking Tobacco: Never Assessed Sex and Gender Information Value Date Recorded Sex Assigned at Not on file Gender Identity Not on file Sexual Orientation Not on file Plan of Treatment Health Maintenance Due Date Last Done Comments BONE DENSITY TESTING 1950 COLOGUARD (AGES 45-75) - COL ON CA SCREENING 1952 COLON MONITORING 1952 COLONOSCOPY - COLON CA SCREENING 1952 CT COLONOGRAPHY - COLON CA SCREENING 1952 Colorectal Cancer Screening 1952 FIT - COLON CA SCREENING 1952 FLEX SIG - COLON CA SCREENING 1952 LIPID TESTING 1952 MAMMOGRAM 1950 MEDICARE AWV 12 MONTHS 1952 HEPATITIS C SCREENING 05/27/1970 DTAP/TDAP/TD VACCINES (1 - Tdap) 1971 PNEUMOCOCCAL VACCINE 50+ (1 of 1 - PCV) 2002 ZOSTER VACCINE (1 of 2) 2002 COVID-19 VACCINE ( - 2023-2 5 season) 2024 INFLUENZA VACCINE (#1) 2024 DEPRESSION SCREENING 06/19/2024 Respiratory Syncytial Virus (RSV) Vaccine Pt: or over 60 yrs (1 - 1-dose 75+ series) 2027 HEPATITIS B VACCINE Aged Out No longe r eligible based on patient's age to complete this topic HIB VACCINE Aged Out No longer eligi ble based on patient's age to complete this topic HPV VACCINE Aged Out No longer eligi ble based on patient's age to complete this topic MENINGOCOCCAL (Group B) VACC INE SHARED DECISION-MAKING Aged Out No longer eligibl e based on patient's age to complete this topic MENINGOCOCCAL GROUPS A/C/Y/W VACCINE Aged Out No longer eligible b ased on patient's age to complete this topic
--- OUTSIDE RECORDS SUMMARY | 2024-09-02 07:49 | XMS_ITS | Clinical Summary ---
Author Organization [facility] [address] [facility] Address [address] [place] [address] Care Team Providers Care Stain Dipper Name Role Phone Ho Nazario Primary Care Provider [phone] Allergies No known active allergies Medications amLODIPine (NORVASC) 10 mg tablet Take 1 tablet (10 mg total) by mouth daily 06/26/2017 Active lovastatin (MEVACOR) 20 mg tablet Take 1 tablet (20 mg total) by mouth nightly 03/11/2018 Active hydroCHLOROthia zide (HYDRODIURIL) 25 mg tablet Take 1 tablet (25 mg total) by mouth daily 03/11/2018 Active olmesartan (BENICAR) 40 mg tablet Take 1 tablet (40 mg total) by mouth daily 08/01/2017 Active levothyroxine (SYNTHROID) 125 mcg tablet Take 1 tablet (125 mcg total) by mouth daily Active warfarin (COUMADIN) 1 mg tablet Take 1 tablet (1 mg total) by mouth daily Active warfarin (COUMADIN) 2.5 mg tablet Take 1 tablet (2.5 mg total) by mouth daily Active atenoloL (TENORMIN) 50 mg tablet Take 1 tablet (50 mg total) by mouth daily 03/11/2018 Active benzonatate (TESSALON) 200 mg capsuleIndicati ons:Viral URI with cough Take 1 capsule (200 mg total) by mouth 3 (three) times a day as needed for cough 42 capsule 06/24/2023 Active Active Problems Problem Noted Date Diagnosed Date Atrial fibrillation 06/24/2023 Chest pain at rest 06/24/2023 Hyperlipidemia 06/24/2023 Hypothyroidism 06/24/2023 GERD (gastroesophageal reflux disease) 9 Essential hypertension 08/13/2018 Medical History Medical History Date Comments Hyperlipidemia Hypertension Social History Tobacco Use Types Packs/Day Years Used Date Smoking Tobacco: Never Assessed Comments Unknown Sex and Gender Information Value Date Recorded Sex Assigned at Not on file Legal Sex Female 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 Gender Identity Not on file Sexual Orientation Not on file Obstetrics History Last Filed Vital Signs Vital Sign Reading Time Taken Comments Blood Pressure 136/90 06/24/2023 3:33 PM AOC DIRECTOR COMBAT PLANS OFFICER Pulse 71 06/24/2023 3:33 PM AOC DIRECTOR COMBAT PLANS OFFICER Temperature 36.4 C (97.6 F) 06/24/2023 3:33 PM AOC DIRECTOR COMBAT PLANS OFFICER Respiratory Rate 18 06/24/2023 3:33 PM AOC DIRECTOR COMBAT PLANS OFFICER Oxygen Saturation 97% 06/24/2023 3:33 PM AOC DIRECTOR COMBAT PLANS OFFICER Inhaled Oxygen Concentration - - Weight 108.4 kg (239 lb) 06/24/2023 3:33 PM AOC DIRECTOR COMBAT PLANS OFFICER Height 162.6 cm (5' 4) 06/24/2023 3:33 PM AOC DIRECTOR COMBAT PLANS OFFICER Body Mass Index 41.02 06/24/2023 3:33 PM AOC DIRECTOR COMBAT PLANS OFFICER Plan of Treatment Health Maintenance Due Date Last Done Comments Breast Cancer Screening-Mammogram 1952 Colon Cancer Screening-Colonoscopy 1952 Depression Screening 1952 Fall Risk Assessment 1952 Hepatitis C Screening 1952 Osteoporosis Screening-Bone Density Scan 1952 DTaP/Tdap/Td Vaccine (1 - Tdap) 1963 Hepatitis B Screening 1970 Well Visit 65+ 2017 Covid-19 Vaccine (4 - 2023-2 5 season) 2024 05/11/2021, 09/18/2020, 08/21/2020 Influenza Vaccine (#1) 2024 3, 05/05/2022, 04/29/2021, Additional history exists Pneumococcal vaccine 65+ Completed 019, 05/02/2018, 04/19/2018 Zoster Vaccine Completed 09/29/2022, 07/08/2022 Insurance [employer] Care Teams Stain Dipper Relationship Specialty Start Date End Date Ho Nazario PA [address] [place] [address] PCP - General Family Practice 06/24/23
--- OUTSIDE RECORDS SUMMARY | 2024-09-02 07:49 | XMS_ITS | Clinical Summary ---
Author Organization [facility] Address [address] [place] [address] Phone Care Team Providers Care Social Media Marketer Name Role Phone Unavailable Unavailable Unavailable Reason for Visit and Chief Complaint referred by Dr. Ralph, visit for: Lap Kaycee Consult Problems Includes: Problems addressed during this encounter and other active Problems Current Visit Onset Date Resolved Date Provider Samantha taylor Status Gerd 08/13/2018 BEENA EDGE DO Active Last Documented On 9 2:08PM ; [facility] Essential Hypertension 08/13/2018 BEENA Taylor DO Active Last Documented On 9 2:16PM ; [facility] Plan of Treatment Laparoscopic Cholecystectomy under general anesthesia. - Last Documented On 08/13/2018 2:19PM ; [facility] Assessments Includes: Assessments from this encounter Findings Chronic Cholecystitis with possible polyps. - Last Documented On 08/13/2018 2:19PM ; [facility] Medical Equipment - Implanted Devices Includes: Current Devices No Medical Equipment Recorded Medications Includes: Medications discussed during this encounter and other current Medications Discontinued / Stopped on this date on 08/13/2018 Beyknv-D-Khjeyjadnxm Powder Provider: Diagnosis: Last Documented On 08/13/2018 1:57PM By CHUCK COTTER LPN ; [facility] Current Medications (continue as prescribed) Benicar 40MG Oral Tablet 08/13/2018 Provider: Diagnosis: 1 tab po daily Last Documented On 08/13/2018 1:44PM By CHUCK COTTER LPN ; [facility] Lisinopril 20MG Oral Tablet 08/13/2018 Provider: Diagnosis: 1 tab po daily Last Documented On 08/13/2018 1:46PM By CHUCK COTTER LPN ; [facility] hydroCHLOROthiazide 25MG Oral Tablet 08/13/2018 Prov ider: Diagnosis: 1 tab po daily Last Documented On 08/13/2018 1:56PM By CHUCK COTTER LPN ; [facility] Atenolol 50MG Oral Tablet 08/13/2018 Provider: Diagnosis: 1 tab po daily Last Documented On 08/13/2018 1:56PM By CHUCK COTTER LPN ; [facility] Glucosamine HCl Oral Tablet 08/13/2018 Provider: Diagnosis: 1 tab po daily Last Documented On 08/13/2018 1:58PM By CHUCK COTTER LPN ; [facility] Womens Multivitamin Oral Tablet 08/13/2018 Provider: Diagnosis: 1 tab po daily Last Documented On 08/13/2018 1:59PM By CHUCK COTTER LPN ; [facility] Calcium 600MG Oral Tablet 08/13/2018 Provider: Diagnosis: 1 tab po BID Last Documented On 08/13/2018 2:00PM By CHUCK COTTER LPN ; [facility] Lovastatin 20MG Oral Tablet 08/13/2018 Provider: Diagnosis: 1 tab po daily Last Documented On 08/13/2018 1:46PM By CHUCK COTTER LPN ; [facility] amLODIPine Besylate 10MG Oral Tablet 08/13/2018 Prov ider: Diagnosis: 1 tab po daily Last Documented On 08/13/2018 1:45PM By CHUCK COTTER LPN ; [facility] Past Medications on file Colestid 1GM Oral Tablet 08/29/2018 - 09/28/2018 Provider: BEENA Roper Diagnosis: Chronic cholecys titis 2 tablets twice a day Last Documented On 08/29/2018 1:42PM By BEENA EDGE DO ; [facility] Caroleen 5-325MG Oral Tablet 08/22/2018 - 08/24/2018 Provider: BEENA Roper Diagnosis: Chronic cholecys titis 1 every 6 hours as needed Last Documented On 08/22/2018 9:18AM By BEENA EDGE DO ; [facility] Medications Administered Includes: Administered Medications from this encounter No Administered Medications Recorded Vital Signs Includes: Vital Signs from this encounter Vital Name 08/13/2018 01:37P Blood Pressure Sitting R 134/96 Pulse Rate-Sitting (bpm) 63 Respiration Rate (breaths/min) 20 Temp-Tympanic (F) 97.7 Height (in) 64 Weight (lb) 240 Body Mass Index (kg/m2) 41.2 Body Surface Area (m2) 2.1 Note: NECK 39 cm Last Documented: On 08/13/2018 1:38PM ; [facility] Results Includes: Results discussed during this encounter No Results Recorded For Specified Dates History of Present Illness Includes: History of Present Illness from this encounter AFTAB GOMEZ is a 68 year old female. RUQ pain intermittantly associated with GERD symptoms. Sonogram showed possible polyps. HIDA scan showed an ejection fraction of 17%. - Medication list reviewed. - No constipation. Social History Description Last Updated Not a current smoker 08/13/2018 Last Documented On 9 2:19PM ; [facility] Not using alcohol 08/13/2018 Last Documented On 9 2:19PM ; [facility] Not using drugs 08/13/2018 Last Documented On 9 2:19PM ; [facility] Smoking status : Never smoker 08/13/2018 Last Documented On 9 2:19PM ; [facility] Procedures and Surgical History Includes: Procedures from this encounter Procedures Code Diagnosis Performing Provider Service L ocation Service Date reviewed an abdominal ultrasound 69218 Last Documented On 9 2:17PM ; [facility] reviewed an HIDA isotopic scan of the li jeni Last Documented On 9 2:17PM ; [facility] Medical History Includes: Medical History addressed during this encounter Description Last Updated History of hypertension 08/13/2018 Last Documented On 9 2:19PM ; [facility] EGD 07/18/18 ~Colonoscopy 05/28/18 ~Tubal Ligation 1982 08/13/2018 Last Documented On 9 2:19PM ; [facility] Taking medication 08/13/2018 Last Documented On 9 2:19PM ; [facility] Family History Includes: Family History addressed during this encounter Description Last Updated Family medical history was unknown 08/13 Last Documented On 9 2:19PM ; [facility] Review of Systems Includes: Review of Systems from this encounter Systemic: No fever and no chills. Neck: No neck stiffness. Cardiovascular: No chest pain or discomfort. Pulmonary: No dyspnea. Gastrointestinal: No anorexia. Nausea. No vomiting, no jaundice, no melena, and no hematochezia. No diarrhea. Genitourinary: No dysuria. Mental Status Includes: Mental Status from this encounter No Mental Status Recorded Functional Status Includes: Functional Status from this encounter No Functional Status Recorded Physical Exam Includes: Physical Exam from this encounter Allergies Includes: Active Allergies No Known Allergies Encounters Encounter Provider Location Date Check-In Time Check-Out Time Diagnosis CONSULTATION BEENA EDGE DO [facility] 08/13/19 19 1:17PM 2:14PM Assessment [use For S.o.a.p. Note Free Text] Clinical Notes Includes: Clinical Notes from this encounter No Clinical Notes Recorded
--- OUTSIDE RECORDS SUMMARY | 2024-09-02 07:50 | XMS_ITS | Data Portability ---
Author Organization [facility] Address [address] [facility] [place] [address] Care Team Providers Care Sergeant Missile Crewman Name Role Phone NESHA NAZARIO Primary Care Provider Assessment No assessment recorded. Plan of Treatment Reminders Order Date Submit Date Provider Last Modified By Organization Details Last Modified Time Details Appointments ANY 15 2024 09:30A M Nesha Nazario PA-C Not available Not available Not available Lab HbA1c (hemoglob in A1c), blood 2023 024 ROBEL In-Office Order, Internal Use Only DO Not Attach Compendium DO Not Attach Compendium, Do Not Delete/merge, [id number] 05/08/2024 10:43:58 CBC 2023 024 [facility], [address] [facility] [address], [address], 05/09/2024 13:13:26 CMP, serum or plasma 2023 024 [facility], [address] [facility] [address], [place], [address], 05/09/2024 13:13:23 lipid panel, serum 2023 024 [facility], [address] [facility], [place], [address], 05/09/2024 13:13:22 TSH + free T4, serum 2023 024 ROB[facility], [address] [facility], [place], [address], 05/09/2024 13:13:20 CBC 2023 024 [facility], [address] [facility], [facility], [place], [address], 11/10/2023 11:15:47 CMP, serum or plasma 2023 024 ROB[facility], [address] [facility], [address], [place], [address], 11/10/2023 11:15:44 lipid panel, serum 2023 024 ROB[facility], [address] [facility], [address], [place], [address], 11/10/2023 11:15:43 HbA1c (hemoglob in A1c), blood 2023 ROBEL In-Office Order, Internal Use Only DO Not Attach Compendium DO Not Attach Compendium, Do Not Delete/merge, [id number] 11/09/2023 11:23:54 Referral None recorded. Procedures None recorded. Surgeries None recorded. Imaging None recorded. Medication Orders losartan 100 mg tablet 2023 [facility] [place], [address], 05/08/2024 10:55:15 clonidine HCl 0.2 mg tablet 2023 024 [facility] [address], [address] [place], [address], 11/09/2023 10:58:22 clonidine HCl 0.1 mg tablet 2023 024 [facility] [address] [place], [address], 03/11/2024 10:48:49 Patient TargetsNo targets recorded. Patient Instructions Encounter Date Encounter Id Patient Instructions Last Modified By Organization Details Last Modified Time 09/25/2023 [id number] A healthy lifestyle: care instructions jnanney Not available 09/25/2023 10:55:42 learning about high blood pressure jnanney Not available 09/25/2023 10:55:35 high cholesterol : care instructions jnanney Not available 09/25/2023 10:55:35 11/09/2023 [id number] A healthy lifestyle: care instructions jnanney Not available 11/09/2023 10:55:59 learning about high blood pressure jnanney Not available 11/09/2023 10:55:59 high cholesterol : care instructions jnanney Not available 11/09/2023 10:55:59 12/07/2023 [id number] A healthy lifestyle: care instructions jnanney Not available 12/07/2023 12:02:19 learning about high blood pressure jnanney Not available 12/07/2023 12:02:19 03/11/2024 [id number] A healthy lifestyle: care instructions jnanney Not available 03/11/2024 11:07:56 learning about high blood pressure jnanney Not available 03/11/2024 11:07:21 advance care planning: care instructions jnanney Not available 03/11/2024 11:07:20 preventing falls : care instructions jnanney Not available 03/11/2024 11:07:20 Quitting Tobacco : Care Instructions jnanney Not available 03/11/2024 11:07:20 Medicare [facility] Preventive Checklist jnanney Not available 03/11/2024 11:07:21 eating healthy foods: care instructions jnanney Not available 03/11/2024 11:07:20 AD8 Dementia Screening Interview jnanney Not available 03/11/2024 11:07:21 05/08/2024 [id number] A healthy lifestyle: care instructions jnanney Not available 05/08/2024 10:53:54 learning about high blood pressure jnanney Not available 05/08/2024 10:53:54 hypothyroidism: care instructions jnanney Not available 05/08/2024 10:55:02 Reason for Referral None Reported. Results Created Date Observation Date Name Description Value Unit Range Abnormal Flag Note LastModifiedBy Organization Detail LastModifiedTime 11/09/19 24 11/10/2023 LIPID PANEL cholesterol, total 194 mg/dL 100-19 9 Not Available [facility] & [address], [address], 11/10/2023 11:15:43 11/09/19 24 11/10/2023 LIPID PANEL triglyceride s 151 mg/dL 0-149 above high normal Not Available [address], [address], 11/10/2023 11:15:43 11/09/19 24 11/10/2023 LIPID PANEL HDL cholesterol 51 mg/dL >39 Not Available [address], [address], 11/10/2023 11:15:43 11/09/19 24 11/10/2023 LIPID PANEL VLDL cholesterol stevie 27 mg/dL 5-40 Not Available [address], [address], 11/10/2023 11:15:43 11/09/19 24 11/10/2023 LIPID PANEL LDL chol calc (nih) 116 mg/dL 0-99 above high normal Not Available [address], [address], 11/10/2023 11:15:43 11/09/19 24 11/10/2023 COMP. METAB OLIC PANEL (14) glucose 102 mg/dL 70-99 above high normal Not Available [address], [address], 11/10/2023 11:15:44 11/09/19 24 11/10/2023 COMP. METAB OLIC PANEL (14) BUN 27 mg/dL 8-27 Not Available [address], [address], 11/10/2023 11:15:44 11/09/19 24 11/10/2023 COMP. METAB OLIC PANEL (14) creatinine 1.29 mg/dL 0.57-1 .00 above high normal Not Available [address], [address], 11/10/2023 11:15:44 11/09/19 24 11/10/2023 COMP. METAB OLIC PANEL (14) eGFR 44 mL/mi n/1.7 3 >59 below low normal Not Available [address], [address], 11/10/2023 11:15:44 11/09/19 24 11/10/2023 COMP. METAB OLIC PANEL (14) BUN/creatini ne ratio 21 12-28 Not Available [address], [address], 11/10/2023 11:15:44 11/09/19 24 11/10/2023 COMP. METAB OLIC PANEL (14) sodium 139 mmol/ L 134-14 4 Not Available [address], [address], 11/10/2023 11:15:44 11/09/19 24 11/10/2023 COMP. METAB OLIC PANEL (14) potassium 4.2 mmol/ L 3.5-5. 2 Not Available [address], [address], 11/10/2023 11:15:44 11/09/19 24 11/10/2023 COMP. METAB OLIC PANEL (14) chloride 100 mmol/ L 96-106 Not Available [address], [address], 11/10/2023 11:15:44 11/09/19 24 11/10/2023 COMP. METAB OLIC PANEL (14) carbon dioxide, total 23 mmol/ L 20-29 Not Available [address], [address], 11/10/2023 11:15:44 11/09/19 24 11/10/2023 COMP. METAB OLIC PANEL (14) calcium 9.8 mg/dL 8.7-10 .3 Not Available [address], [address], 11/10/2023 11:15:44 11/09/19 24 11/10/2023 COMP. METAB OLIC PANEL (14) protein, total 8.0 g/dL 6.0-8. 5 Not Available [address], [address], 11/10/2023 11:15:44 11/09/19 24 11/10/2023 COMP. METAB OLIC PANEL (14) albumin 4.5 g/dL 3.8-4. 8 Not Available [address], [address], 11/10/2023 11:15:44 11/09/19 24 11/10/2023 COMP. METAB OLIC PANEL (14) globulin, total 3.5 g/dL 1.5-4. 5 Not Available [address], [address], 11/10/2023 11:15:44 11/09/19 24 11/10/2023 COMP. METAB OLIC PANEL (14) A/G ratio 1.3 1.2-2. 2 Not Available [address], [address], 11/10/2023 11:15:44 11/09/19 24 11/10/2023 COMP. METAB OLIC PANEL (14) bilirubin, total 0.6 mg/dL 0.0-1. 2 Not Available [address], [address], 11/10/2023 11:15:44 11/09/19 24 11/10/2023 COMP. METAB OLIC PANEL (14) alkaline phosphatase 115 IU/L 44-121 Not Available [facility] & [address], [address], 11/10/2023 11:15:44 11/09/19 24 11/10/2023 COMP. METAB OLIC PANEL (14) AST (SGOT) 25 IU/L 0-40 Not Available [address], [address], 11/10/2023 11:15:44 11/09/19 24 11/10/2023 COMP. METAB OLIC PANEL (14) ALT (SGPT) 17 IU/L 0-32 Not Available [address], [address], 11/10/2023 11:15:44 11/09/19 24 11/10/2023 LITHO LINK CKD PROGR AM interpretati on Note Suppl ement al repor t is avail able. Not Available [address], [address], 11/10/2023 11:15:46 11/09/19 24 11/10/2023 LITHO LINK CKD PROGR AM pdf . Not Available [address], [address], 11/10/2023 11:15:46 11/09/19 24 11/10/2023 CARDI OVASC ULAR REPOR T interpretati on Note Suppl ement al repor t is avail able. Not Available [address], [address], 11/10/2023 11:15:47 11/09/19 24 11/10/2023 CARDI OVASC ULAR REPOR T pdf Not applic able Not Available [facility] & [address], [address], 11/10/2023 11:15:47 11/09/19 24 11/10/2023 CBC, PLATE LET, NO DIFFE RENTI AL WBC 6.7 x10e3 /uL 3.4-10 .8 Not Available [address], [address], 11/10/2023 11:15:47 11/09/19 24 11/10/2023 CBC, PLATE LET, NO DIFFE RENTI AL RBC 5.10 x10e6 /uL 3.77-5 .28 Not Available [address], [address], 11/10/2023 11:15:47 11/09/19 24 11/10/2023 CBC, PLATE LET, NO DIFFE RENTI AL hemoglobin 15.1 g/dL 11.1-1 5.9 Not Available [address], [address], 11/10/2023 11:15:47 11/09/19 24 11/10/2023 CBC, PLATE LET, NO DIFFE RENTI AL hematocrit 46.5 % 34.0-4 6.6 Not Available [address], [address], 11/10/2023 11:15:47 11/09/19 24 11/10/2023 CBC, PLATE LET, NO DIFFE RENTI AL MCV 91 fL 79-97 Not Available [address], [address], 11/10/2023 11:15:47 11/09/19 24 11/10/2023 CBC, PLATE LET, NO DIFFE RENTI AL MCH 29.6 pg 26.6-3 3.0 Not Available [address], [address], 11/10/2023 11:15:47 11/09/19 24 11/10/2023 CBC, PLATE LET, NO DIFFE RENTI AL MCHC 32.5 g/dL 31.5-3 5.7 Not Available [address], [address], 11/10/2023 11:15:47 11/09/19 24 11/10/2023 CBC, PLATE LET, NO DIFFE RENTI AL RDW 15.0 % 11.7-1 5.4 Not Available [address], [address], 11/10/2023 11:15:47 11/09/19 24 11/10/2023 CBC, PLATE LET, NO DIFFE RENTI AL platelets 323 x10e3 /uL 150-45 0 Not Available [address], [address], 11/10/2023 11:15:47 11/09/19 24 11/09/2023 HbA1c (hemo globi n A1c), blood HbA1c 5.4 Not Available In-Office Order Internal Use Only DO Not Attach Compendium DO Not Attach Compendium, Do Not Delete/merge, [id number] 11/09/2023 10:55:38 05/08/2005/09/2024 TSH+F REE T4 TSH 0.856 uIU/m L 0.450- 4.500 Not Available [address], [address], 05/09/2024 13:13:20 05/08/2005/09/2024 TSH+F REE T4 T4,free(dire ct) 1.55 NG/dL 0.82-1 .77 Not Available [address], [address], 05/09/2024 13:13:20 05/08/20 24 05/09/2024 LIPID PANEL cholesterol, total 186 mg/dL 100-19 9 Not Available [address], [address], 05/09/2024 13:13:22 05/08/20 24 05/09/2024 LIPID PANEL triglyceride s 136 mg/dL 0-149 Not Available [address], [address], 05/09/2024 13:13:22 05/08/20 24 05/09/2024 LIPID PANEL HDL cholesterol 47 mg/dL >39 Not Available [address], [address], 05/09/2024 13:13:22 05/08/20 24 05/09/2024 LIPID PANEL VLDL cholesterol stevie 24 mg/dL 5-40 Not Available [address], [address], 05/09/2024 13:13:22 05/08/20 24 05/09/2024 LIPID PANEL LDL chol calc ([facility]) 115 mg/dL 0-99 above high normal Not Available [address], [address], 05/09/2024 13:13:22 05/08/20 24 05/09/2024 COMP. METAB OLIC PANEL (14) glucose 96 mg/dL 70-99 Not Available [address], [address], 05/09/2024 13:13:23 05/08/20 24 05/09/2024 COMP. METAB OLIC PANEL (14) BUN 27 mg/dL 8-27 Not Available [address], [address], 05/09/2024 13:13:23 05/08/20 24 05/09/2024 COMP. METAB OLIC PANEL (14) creatinine 1.15 mg/dL 0.57-1 .00 above high normal Not Available [address], [address], 05/09/2024 13:13:23 05/08/20 24 05/09/2024 COMP. METAB OLIC PANEL (14) eGFR 51 mL/mi n/1.7 3 >59 below low normal Not Available [address], [address], 05/09/2024 13:13:23 05/08/20 24 05/09/2024 COMP. METAB OLIC PANEL (14) BUN/creatini ne ratio 23 12-28 Not Available [address], [address], 05/09/2024 13:13:23 05/08/20 24 05/09/2024 COMP. METAB OLIC PANEL (14) sodium 140 mmol/ L 134-14 4 Not Available [address], [address], 05/09/2024 13:13:23 05/08/20 24 05/09/2024 COMP. METAB OLIC PANEL (14) potassium 4.2 mmol/ L 3.5-5. 2 Not Available [address], [address], 05/09/2024 13:13:23 05/08/20 24 05/09/2024 COMP. METAB OLIC PANEL (14) chloride 101 mmol/ L 96-106 Not Available [address], [address], 05/09/2024 13:13:23 05/08/20 24 05/09/2024 COMP. METAB OLIC PANEL (14) carbon dioxide, total 23 mmol/ L 20-29 Not Available [address], [address], 05/09/2024 13:13:23 05/08/20 24 05/09/2024 COMP. METAB OLIC PANEL (14) calcium 9.9 mg/dL 8.7-10 .3 Not Available [address], [address], 05/09/2024 13:13:23 05/08/20 24 05/09/2024 COMP. METAB OLIC PANEL (14) protein, total 7.7 g/dL 6.0-8. 5 Not Available [address], [address], 05/09/2024 13:13:23 05/08/20 24 05/09/2024 COMP. METAB OLIC PANEL (14) albumin 4.2 g/dL 3.8-4. 8 Not Available [address], [address], 05/09/2024 13:13:23 05/08/20 24 05/09/2024 COMP. METAB OLIC PANEL (14) globulin, total 3.5 g/dL 1.5-4. 5 Not Available [address], [address], 05/09/2024 13:13:23 05/08/20 24 05/09/2024 COMP. METAB OLIC PANEL (14) bilirubin, total 0.6 mg/dL 0.0-1. 2 Not Available [address], [address], 05/09/2024 13:13:23 05/08/20 24 05/09/2024 COMP. METAB OLIC PANEL (14) alkaline phosphatase 120 IU/L 44-121 Not Available [address], [address], 05/09/2024 13:13:23 05/08/20 24 05/09/2024 COMP. METAB OLIC PANEL (14) AST (SGOT) 26 IU/L 0-40 Not Available [address] [place], [address], 05/09/2024 13:13:23 05/08/20 24 05/09/2024 COMP. METAB OLIC PANEL (14) ALT (SGPT) 20 IU/L 0-32 Not Available [facility], [address], 05/09/2024 13:13:23 05/08/20 24 05/09/2024 LITHO LINK CKD PROGR AM interpretati on Note Suppl ement al repor t is avail able. Not Available [address], [address], 05/09/2024 13:13:25 05/08/20 24 05/09/2024 LITHO LINK CKD PROGR AM pdf . Not Available [facility] [address], [address], 05/09/2024 13:13:25 05/08/20 24 05/09/2024 CARDI OVASC ULAR REPOR T interpretati on Note Suppl ement al repor t is avail able. Not Available [address], [address], 05/09/2024 13:13:26 05/08/20 24 05/09/2024 CARDI OVASC ULAR REPOR T pdf Not applic able Not Available [facility] [address], [address], 05/09/2024 13:13:26 05/08/20 24 05/09/2024 CBC, PLATE LET, NO DIFFE RENTI AL WBC 6.2 x10e3 /uL 3.4-10 .8 Eff ectiv e Decem 2023 profi taiwo [id number] WBC will be made* * non-o rdera ble as a stand -khadar e order code. Not Available [address], [address], 05/09/2024 13:13:26 05/08/2005/09/2024 CBC, PLATE LET, NO DIFFE RENTI AL RBC 4.84 x10e6 /uL 3.77-5 .28 Not Available [address], [address], 05/09/2024 13:13:26 05/08/2005/09/2024 CBC, PLATE LET, NO DIFFE RENTI AL hemoglobin 14.5 g/dL 11.1-1 5.9 Not Available [address], [address], 05/09/2024 13:13:26 05/08/2005/09/2024 CBC, PLATE LET, NO DIFFE RENTI AL hematocrit 44.5 % 34.0-4 6.6 Not Available [address], [address], 05/09/2024 13:13:26 05/08/2005/09/2024 CBC, PLATE LET, NO DIFFE RENTI AL MCV 92 fL 79-97 Not Available [address], [address], 05/09/2024 13:13:26 05/08/2005/09/2024 CBC, PLATE LET, NO DIFFE RENTI AL MCH 30.0 pg 26.6-3 3.0 Not Available [address], [address], 05/09/2024 13:13:26 05/08/2005/09/2024 CBC, PLATE LET, NO DIFFE RENTI AL MCHC 32.6 g/dL 31.5-3 5.7 Not Available [address], [address], 05/09/2024 13:13:26 05/08/20 24 05/09/2024 CBC, PLATE LET, NO DIFFE RENTI AL RDW 14.3 % 11.7-1 5.4 Not Available [facility] [address] [place], [address], 05/09/2024 13:13:26 05/08/20 24 05/09/2024 CBC, PLATE LET, NO DIFFE RENTI AL platelets 306 x10e3 /uL 150-45 0 Not Available [facility] [address] [place], [address], 05/09/2024 13:13:26 05/08/20 24 05/08/2024 HbA1c (hemo globi n A1c), blood HbA1c 5.6 Not Available In-Office Order Internal Use Only DO Not Attach Compendium DO Not Attach Compendium, Do Not Delete/merge, [id number] 05/07/2024 16:51:16 Result Notes None recorded. Problems Name Problem SNOMED Code Status Onset Date Resolution Date Notes Provider Name and Address Organization Details Recorded Time Chest pain at rest 6986374 Active Not Available [facility] 3 17:58:25 Atrial fibrillation 59401029 Active Not Available [facility] 3 17:58:25 Hypertensive disorder 85875496 Active Not Available [facility] 3 17:58:25 Hypothyroidism 87534589 Active Not Available [facility] 3 17:58:25 Essential hypertension 54072312 Active Not Available [facility] 3 17:58:25 Hyperlipidemia 59895728 Active Not Available [facility] 3 17:58:25 Problem Notes None recorded. Procedures Surgical History Date Name Laterality Status Provider Name and Address Organization Details Recorded Time 08/18/19 19 Cholecystectomy completed WILLIAN Edouard 10/26/2020 10:28:04 07/18/19 19 endoscopy completed WILLIAN Edouard 10/26/2020 10:30:27 05/19/20 18 colonoscopy completed WILLIAN Edouard 10/26/2020 10:27:29 Tubal Ligation completed Neetu Caal MA [place] - [facility] 04/03/2015 10:18:30 Imaging Results None recorded. Procedure Notes None recorded. Medical Equipment None Reported. Allergies Allergen ID Allergen Name Allergen Category Reaction Reaction Severity Criticality Documentation Date Start Date Code Code System Note Provider Name and Address Organization Details Recorded Time 520734 No known allergy (situatio n) Not available Not available Not available Not available 02/17/2021 54282 [id number] SNOMED Not Available Not Available Not Available No known drug allergies Medications Name Sig Start Date Stop Date Status Note LastModified by Organization Details LastModified Time latanoprost 0.005 % eye drops INSTILL 1 DROP INTO EACH EYE ONCE DAILY AT NIGHT AT BEDTIME DIRECTED active Not Available Not Available No t Available clonidine HCl 0.1 mg tablet TAKE 1 TABLET BY MOUTH ONCE DAILY AT BEDTIME FOR 90 DAYS 03/11 completed Not Available Not Available Not Available benzonatate 200 mg capsule TAKE 1 CAPSULE BY MOUTH THREE TIMES DAILY NEEDED FOR COUGH 08/27 completed Not Available Not Available Not Available hydrocodone 5 mg-acetamin ophen 325 mg tablet 10/22 completed Not Available Not Available Not Available lisinopril 20 mg tablet TAKE 1 TABLET BY MOUTH ONCE DAILY 02/17 completed Not Available Not Available Not Available atenolol 25 mg tablet TAKE 2 TABLETS BY MOUTH ONCE DAILY 09/10 completed Not Available Not Available Not Available warfarin 2.5 mg tablet TAKE 1 TABLET BY MOUTH ONCE DAILY active Not Available Not Available No t Available penicillin V potassium 500 mg tablet 12/28 completed Not Available Not Available Not Available omeprazole 40 mg capsule,del ayed release 08/11 completed Not Available Not Available Not Available clonidine HCl 0.2 mg tablet TAKE 1 TABLET BY MOUTH TWICE DAILY active Not Available Not Available No t Available lorazepam 0.5 mg tablet 10/22 completed Not Available Not Available Not Available amlodipine 10 mg tablet Take 1 tablet by mouth once daily 2023 active Not Available Not Available Not Avai lable benzonatate 100 mg capsule 12/28 completed Not Available Not Available Not Available pantoprazol e 40 mg tablet,joe yed release 08/30 completed Not Available Not Available Not Available levothyroxi ne 125 mcg tablet TAKE 1 TABLET BY MOUTH ONCE DAILY IN THE MORNING 2024 active Not Available Not Available Not Avai lable lansoprazol e 30 mg capsule,del ayed release 10/22 completed Not Available Not Available Not Available warfarin 5 mg tablet TAKE 1 TABLET BY MOUTH ONCE DAILY 04/29 completed Not Available Not Available Not Available lisinopril 20 mg-hydrochl orothiazide 25 mg tablet 01/22 completed Not Available Not Available Not Available hydrochloro thiazide 25 mg tablet Take 1 tablet by mouth once daily active Not Available Not Available No t Available irbesartan 150 mg tablet 1 daily 2018 active Not Available Not Available Not Avai lable warfarin 1 mg tablet TAKE 1 TABLET BY MOUTH ONCE DAILY active Not Available Not Available No t Available lovastatin 20 mg tablet TAKE 1 TABLET BY MOUTH ONCE DAILY WITH EVENING MEAL active Not Available Not Available No t Available zolpidem 10 mg tablet 05/05 completed Not Available Not Available Not Available losartan 100 mg tablet Take 1 tablet by mouth once daily for 90 days 2024 active Not Available Not Available Not Avai lable colestipol 1 gram tablet 10/26 completed Not Available Not Available Not Available atenolol 50 mg tablet Take 1 tablet by mouth once daily 2024 active Not Available Not Available Not Avai lable irbesartan 300 mg tablet TAKE 1 TABLET BY MOUTH ONCE DAILY 10/22 completed Not Available Not Available Not Available valsartan 160 mg tablet Take 1 tablet every day by oral route for 90 days. 12/28 completed Not Available Not Available Not Available olmesartan 40 mg tablet TAKE 1 TABLET BY MOUTH ONCE DAILY 09/24 completed Not Available Not Available Not Available enoxaparin 120 mg/0.8 mL subcutaneou s syringe INJECT 112MG (0.7467ML ) SUBCUTANE OUSLY DIRCTED EVERY 12 HOURS FOR 10 DAYS 02/17 completed Not Available Not Available Not Available calcium 05/04 completed Not Available Not Available Not Available Glucosamine 1500mg 05/04 completed Not Available Not Available Not Available One A Day Vitamin 1 PO QD 05/05 completed Not Available Not Available Not Available Fish Oil 1,000 mg (120 mg-180 mg) capsule Take 1 capsule by oral route. 08/11 completed Not Available Not Available Not Available BinaxNOW COVID-19 Ag Self Test kit Use as Directed on the Package 05/04 completed Not Available Not Available Not Available Vitals Date Recorded Body height Body mass index (BMI) Body weight Oxygen saturation Oxygen saturation in Arterial blood by Pulse oximetry Heart rate Systolic blood pressure Diastolic blood pressure Provider Name and Address Organization Details Last Updated DateTime 4 162.56 cm 41.3 kg/m2 791441. 97 g 98 % 98 % 64 /min 134 mm[Hg] 90 mm[Hg] Josefa Sanchez MA [facility] 4 10:33:52 Date Recorded Body height Body mass index (BMI) Body weight Heart rate Oxygen saturation Oxygen saturation in Arterial blood by Pulse oximetry Systolic blood pressure Diastolic blood pressure Provider Name and Address Organization Details Last Updated DateTime 4 162.56 cm 40.7 kg/m2 735426. 09 g 70 /min 97 % 97 % 158 mm[Hg] 82 mm[Hg] Josefa Sanchez MA [facility] 4 10:40:53 Date Recorded Body height Body mass index (BMI) Body weight Oxygen saturation Oxygen saturation in Arterial blood by Pulse oximetry Heart rate Provider Name and Address Organization Details Last Updated DateTime 4 162.56 cm 40.6 kg/m2 845710. 6 g 98 % 98 % 64 /min Josefa Sanchez MA [facility] 4 11:39:29 Date Recorded Systolic blood pressure Diastolic blood pressure Provider Name and Address Organization Details Last Updated DateTime 12/07/2023 140 mm[Hg] 82 mm[Hg] Nesha Nazario PA-C Attn: Accounting,[address] [place], [address], [facility] 12/07/2023 12:02:58 Date Recorded Body height Body mass index (BMI) Body weight Oxygen saturation Oxygen saturation in Arterial blood by Pulse oximetry Heart rate Provider Name and Address Organization Details Last Updated DateTime 4 162.56 cm 41.2 kg/m2 729986. 17 g 98 % 98 % 62 /min Maggi Orozco MA [facility] 4 10:50:49 Date Recorded Systolic blood pressure Diastolic blood pressure Provider Name and Address Organization Details Last Updated DateTime 03/11/2024 128 mm[Hg] 84 mm[Hg] Nesha Nazario PA-C Attn: Accounting,[address] [facility], [place], [address], [facility] 03/11/2024 11:18:53 Date Recorded Body height Body mass index (BMI) Body weight Oxygen saturation Oxygen saturation in Arterial blood by Pulse oximetry Heart rate Systolic blood pressure Diastolic blood pressure Provider Name and Address Organization Details Last Updated DateTime 4 162.56 cm 41.5 kg/m2 180674. 56 g 99 % 99 % 67 /min 148 mm[Hg] 89 mm[Hg] Josefa Sanchez MA [facility] 4 10:36:28 Social History Question Answer Notes LastModified by Organizat ion Details LastModified Time Tobacco Smoking Status Never Smoker Neetu Caal MA [facility], [facility] 04/03/2015 10:18:30 What Is Your Level Of Alcohol Consumption? None Information not available 08/30/2018 What Is Your Level Of Caffeine Consumption? Occasional Information not available 04/27/2020 How Much Tobacco Do You Chew? None Information not available 04/27/2020 In The 14 Days Before Symptom Onset, Have You Had Close Contact With A Laboratory-confir med COVID-19 While That Case Was Ill? No Information not available 10/26/2020 In The 14 Days Before Symptom Onset, Have You Had Close Contact With A Person Who Is Under Investigation For COVID-19 While That Person Was Ill? No Information not available 10/26/2020 Have You Been To An Area Known To Be High Risk For COVID-19? No Information not available 10/26/2020 Are You Currently Employed? No Information not available 04/27/2020 What Type Of Diet Are You Following? REGULAR Information not available 08/30/2018 Which Illicit Or Recreational Drugs Have You Used? None Information not available 08/30/2018 Do You Or Have You Ever Used E-cigarettes Or Vape? Never Used Electronic Cigarettes Information not available 04/27/2020 What Is Your Occupation? Retired Information not available 04/27/2020 Live Alone Or With Others? With Others Information not available 04/27/2020 What Was The Date Of Your Most Recent Tobacco Screening? 05/08/2024 Information not available 05/08/2024 What Is Your Relationship Status? Information not available 10/26/2020 Do You Use Your Seat Belt Or Car Seat Routinely? Yes Information not available 10/26/2020 Do You Have Smoke And Carbon Monoxide Detectors In Your Home? Yes Information not available 10/26/2020 Are You Passively Exposed To Smoke? No Information no t available 10/26/2020 Do You Or Have You Ever Used Smokeless Tobacco? Never Used Smokeless Tobacco Information not available 04/27/2020 General Stress Level Low Information not available 04/27/2020 Do You Feel Stressed (tense, Restless, Nervous, Or Anxious, Or Unable To Sleep At Night)? [id number] [email or web address] Information not available 11/02/2021 Do You Use Any Illicit Or Recreational Drugs? No Information not available 10/26/2020 Do You Use Sunscreen Routinely? No Information not available 02/17/2021 Has Tobacco Cessation Counseling Been Provided? No [email or web address] Information not available 10/22/2018 On What Date Was Tobacco Cessation Counseling Provided? 05/08/2024 Information not available 05/08/2024 Do You Or Have You Ever Used Any Other Forms Of Tobacco Or Nicotine? No Information not available 10/26/2020 Sex: Unknown Functional Status Question Answer Note LastModified by Organization D etails LastModified Time Are you able to care for yourself? Yes Information n ot available 04/27/2020 What is your exercise level? None Information not available 02/17/2021 Mental Status None recorded. Family History Relationship Description Onset Age of this Age Resolved Age Notes LastModified by Organization Details LastModified Time Father Alcoholism [email or web address] Not availa ble 04/03/2015 10:18:30 Father Hypertensive disorder [email or web address] Not available 2014 10:18:30 Medical History Condition Response Coronary Artery Disease N Other N High Blood Pressure N Atrial Fibrillation N Thyroid Problems N Kidney or Bladder Problems N GI Problems N Depression N COPD N Blood Clots N Skin Problems N Eating Disorder N Anemia N Heart Attack (ME) N Anxiety Disorder N Diabetes N Muscle, Joint, or Bone Problems N Seizures/Epilepsy N Acid Reflux (GERD) N Cancer N Stroke N Asthma N Allergies N ADHD N Substance Abuse N High Cholesterol N Hepatitis N Liver Disease N Schizophrenia N Headaches N Heart Failure N Osteoporosis N Gynecological History Statement/Question Response Date of Last Pap Smear Date of Last Mammogram Obstetrics History GPAL:G 0 P 0 0 0 0 Immunizations Vaccine Type Date Status Note Provider Nam e and Address Organization Details Recorded Time pneumococcal, unspecified formulation 8 completed Not Available [facility] 09/29/2022 17:58:26 COVID-19, mRNA, LNP-S, PF, 100 mcg/0.5mL dose or 50 mcg/0.25mL dose 1 completed WILLIAN [place], [place] - [facility] 11/01/2022 09:16:38 COVID-19, mRNA, LNP-S, PF, 100 mcg/0.5mL dose or 50 mcg/0.25mL dose 1 completed WILL[place] [facility] 11/01/2022 09:16:38 Pneumococcal conjugate PCV 13 8 completed WILL[place] [facility] 11/01/2022 09:16:38 pneumococcal polysaccharide PPV23 9 completed [place] [facility] 11/01/2022 09:16:38 Influenza, split virus, quadrivalent, preservative 9 completed WILL[place] [facility] 11/01/2022 09:16:37 Influenza, split virus, quadrivalent, preservative 8 completed [place] [facility] 11/01/2022 09:16:37 Influenza, high-dose, quadrivalent, PF 0 completed Nesha Nazario PA-C Attn: Accounting,[address], [place], [address], [place] [facility] 03/31/2020 12:57:32 Influenza, split virus, quadrivalent, preservative 1 completed Maggi Oroz[place], [place] [facility] 04/29/2021 12:58:00 COVID-19, mRNA, LNP-S, PF, 100 mcg/0.5mL dose or 50 mcg/0.25mL dose 1 completed Maggi [place]roz[place] [facility] 05/11/2021 14:15:16 Influenza, high-dose, quadrivalent, PF 2 completed Neetu Berumen [place] [facility] 05/05/2022 11:03:16 Influenza, high-dose, quadrivalent, PF 3 completed Maggi [place]roz[place] [facility] 05/04/2023 12:20:27 COVID-19, mRNA, LNP-S, PF, 50 mcg/0.5 mL 4 completed Josefa Sanchez [place] [facility] 05/08/2024 11:08:36 Influenza, high-dose, trivalent, PF 4 completed Josefa [place] [facility] 05/08/2024 11:08:36 Past Encounters Encounter ID Performer Location Encounter Start Date Encounter Closed Date Diagnosis/Indication Diagnosis SNOMED-CT Code Diagnosis ICD10 Code Diagnosis Note [id number] Jacy Oliveira MA [facility] [address] [place] [address] 04/03/2015 10:11:34 04/03/2015 11:03:29 Essential hypertension 35320592 I10 Hyperlipidemia 45684175 E78.5 [id number] JEREMY Cornelius [facility] [address] [place] [address] 05/16/2016 10:26:33 05/16/2016 11:39:45 Essential hypertension 68038989 I10 [id number] JEREMY Cornelius [address] [place] [address] 12/28/2016 11:15:17 12/28/2016 12:26:50 Essential hypertension 72032169 I10 Hyperlipidemia 88543297 E78.5 [id number] JEREMY Cornelius [facility] [address] [place] [address] 08/11/2017 09:40:45 08/11/2017 11:58:08 Essential hypertension 39772585 I10 Hyperlipidemia 46061599 E78.[address] [facility] th examination 865410681 Z00.00 [id number] Nesha Nazario PA-C [facility] [address] [place] [address] 08/28/2017 13:49:24 08/28/2017 16:12:13 Screening for osteoporosis 910536728 Z13.820 Essential hypertension 86944251 I10 [id number] Deborah Nava MA [facility] [address] [place] [address] 09/11/2017 10:40:27 09/11/2017 17:02:11 Essential hypertension 44657259 I10 Diabetes m ellitus screening 735436826 Z13.1 [id number] Nesha Nazario PA-C [facility] [address] [place] [address] 09/25/2017 10:39:23 09/25/2017 12:09:04 Essential hypertension 72909097 I10 [id number] Nesha Nazario PA-C [facility] [address] [place] [address] 10/23/2017 10:37:03 10/23/2017 11:37:31 Essential hypertension 90753801 I10 [id number] JEREMY Cornelius [facility] [address] [place] [address] 01/22/2018 10:31:22 01/22/2018 11:20:00 Essential hypertension 14478014 I10 [id number] Nesha Nazario PA-C [facility] [address] [place] [address] 04/23/2018 10:21:31 04/23/2018 11:11:39 Essential hypertension 21510511 I10 Hyperlipidemia 40513039 E78.5 Hematochezia 714044116 K 92.1 Administra tion of influenza vaccine 41078734 Z23 [id number] JEREMY Cornelius [facility] [address] [place] [address] 08/30/2018 10:37:39 08/31/2018 15:07:30 Essential hypertension 94701018 I10 [id number] Nesha Nazario PA-C [facility] [address] [place] [address] 10/22/2018 10:34:29 10/22/2018 11:37:33 Essential hypertension 10858171 I10 Hyperlipidemia 38041335 E78.5 [id number] Dacia Ray MA [facility] [address] [place] [address] 04/24/2019 10:24:18 04/24/2019 13:05:12 Essential hypertension 02585046 I10 Mixed hyperlipidemia 267 239646 E78.2 [id number] Nesha Nazario PA-C [facility] [address] [place] [address] 10/23/2019 10:20:28 10/24/2019 09:47:43 Essential hypertension 95675184 I10 [id number] Nesha Nazario PA-C [facility] [address] [place] [address] 03/31/2020 11:29:06 04/01/2020 12:17:56 Administration of influenza vaccine 51597524 Z23 [id number] Nesha Nazario PA-C [facility] [address] [place] [address] 04/27/2020 09:54:50 04/27/2020 12:32:08 Essential hypertension 23108042 I10 Hyperlipidemia 47599422 E78.2 [id number] Nesha Nazario PA-C [facility] [address] [place] [address] 10/26/2020 10:20:57 10/31/2020 10:41:18 Essential hypertension 23533975 I10 Hyperlipidemia 30603201 E78.2 Serum crea tinine above reference range 400222043 R79.89 [id number] Nesha Nazario PA-C [facility] [address] [place] [address] 11/04/2020 15:08:22 11/04/2020 16:58:44 Serum creatinine above reference range 825871555 R79.89 [id number] Nesha Nazario PA-C [facility] [address] [place] [address] 02/17/2021 11:08:22 02/18/2021 10:25:45 History of atrial fibrillation 692514798 Z86.79 [id number] Nesha Nazario PA-C [facility] [address] [place] [address] 04/29/2021 10:26:40 04/29/2021 11:35:25 Active or passive immunization 685465905 Z23 Essential hypertension 90102604 I10 Hyperlipidemia 73900413 E78.2 Atrial fibrillation 4943 6004 I48.0 Body mass index 30+ - obesity 825575434 Z68.41 [id number] Maggi Orozco MA [facility] [address] [place] [address] 05/11/2021 13:58:58 05/11/2021 14:25:07 Administration of SARS-CoV-2 mRNA vaccine 0941595817 Z23 [id number] Nesha Nazario PA-C [facility] [address] [place] [address] 11/02/2021 10:22:47 11/02/2021 11:13:12 Paroxysmal atrial fibrillation 755631571 I48.0 Obstructiv e sleep apnea syndrome 73304586 G47.[address] 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 954784425 E06.3 Essential hypertension 10101594 I10 Overweight 688462599 E66 .3 [id number] JEREMY Cornelius [facility] [address] [place] [address] 05/04/2023 10:21:39 05/12/2023 12:34:21 Administration of influenza vaccine 31455721 Z23 Essential hypertension 74181519 I10 Hypothyroi dism due to Alyx's thyroiditis 172315023 E06.3 Overweight 229819666 E66 .3 [id number] Nesha Nazario PA-C [facility] [address] [place] [address] 08/28/2023 14:50:08 09/01/2023 14:55:43 Atrial fibrillation 89524961 I48.0 Essential hypertension 71945011 I10 re arrange meds timings and follow in 2 weeks... Overweight 908084292 E66 .3 [id number] Nesha Nazario PA-C [facility] [address] [place] [address] 09/11/2023 10:26:07 09/15/2023 00:17:45 Essential hypertension 80858460 I10 re arrange meds timings and follow in 2 weeks... [id number] Nesha Nazario PA-C [facility] [address] [place] [address] 09/25/2023 10:23:33 10/06/2023 15:14:29 Essential hypertension 39825675 I10 re arrange meds timings and follow in 2 weeks... Hyperlipidemia 44921518 E78.2 Overweight 941082143 E66 .3 [id number] Nesha Nazario PA-C [facility] [address] [place] [address] 11/09/2023 10:21:38 11/10/2023 15:43:57 Essential hypertension 69669410 I10 will adjust meds Hyperlipidemia 67181537 E78.2 Overweight 160642015 E66 .3 [id number] Nesha Nazario PA-C [facility] [address] [place] [address] 12/07/2023 11:32:40 12/08/2023 12:43:30 Essential hypertension 68279542 I10 will adjust meds...adj ust dose to 1 QHS and stop the daytime dose... Overweight 085354498 E66 .3 [id number] Nesha Nazario PA-C [facility] [address] [place] [address] 03/11/2024 10:37:40 03/18/2024 15:26:03 Adult health examination 728688660 Z00.00 Health Risk Assessment collected and reviewed Essential hypertension 46506257 I10 will adjust meds...adj ust dose to 1 QHS and stop the daytime dose... Overweight 941171529 E66 .3 [id number] Nesha Nazario PA-C [facility] [address] [place] [address] 05/08/2024 10:24:19 05/13/2024 10:30:55 Mixed hyperlipidemia 180674805 E78.2 Active or passive immunization 571940957 Z23 Essential hypertension 83872742 I10 will adjust meds...adj ust dose to 1 QHS and stop the daytime dose... Overweight 236740688 E66 .3 Hypothyroidism 87302428 E03.9 Health Concerns Section Related Observation LastModified by Organization Detai ls LastModified Time None Recorded Concern Status LastModified by Organization Details LastModified Time None Recorded Advance Directives Directive None Recorded Payers Encounter Date Sequence Insurance Name Policy Number Policy Byrnes Covered Member ID Byrnes Member ID Guarantor Name 09/25/2023 1 [place] Franchesca C Lou [id number] Franchesca Lou 09/25/2023 2 [employer] (MEDICARE SUPPLEMENT) Franchesca Lou [id number] Franchesca Lou 11/09/2023 1 [place] Franchesca C Lou [id number] Franchesca Lou 11/09/2023 2 [employer] (MEDICARE SUPPLEMENT) Franchesca Lou [id number] Franchesca Lou 12/07/2023 1 [place] Franchesca C Lou [id number] Franchesca Lou 12/07/2023 2 [employer] (MEDICARE SUPPLEMENT) Franchesca Lou [id number] Franchesca Lou 03/11/2024 1 [place] Franchesca C Lou [id number] Franchesca Lou 03/11/2024 2 [employer] (MEDICARE SUPPLEMENT) Franchesca Lou [id number] Franchesca Lou 05/08/2024 1 [place] Franchesca Wright Lou [id number] Franchesca Lou 05/08/2024 2 [employer] (MEDICARE SUPPLEMENT) Franchesca Lou [id number] Franchesca Lou Notes Date Note Type Note Provider Name and Address Organization Details Recorded Time 09/25/2023 text/html still with blood pressure problems...getti ng closer... Nesha Nazario PA-C Attn: [address] [place], [address], [facility] 09/25/2023 10:56:23 11/09/2023 text/html 6 month check needs labs...also blood pressure...not under control..(patimaru t does have very large arms)..did get RSV vaccine Nesha Nazario PA-C Attn: [address]ing,[address] [place], [address], [facility] 11/09/2023 10:59:28 12/07/2023 text/html blood pressure is better but twice a day clonidine makes her too drowsy Nesha Nazario PA-C Attn: [address] [place], [address], [facility] 12/07/2023 12:03:38 03/11/2024 text/html here for blood pressure issues...at home usually 160/75....after meds kicked in was 139/67..takes meds faithfully... Nesha Nazario PA-C Attn: Accounting[address] [place], [address], [facility] 03/11/2024 11:20:12 05/08/2024 text/html here for labs and vaccines...blood pressure doing ok...wants to lose weight... Nesha Nazario PA-C Attn: Accounting[address], [place], [address], [facility] 05/08/2024 10:56:19 OBGyn Episode No OBEpisode recorded.
--- OUTSIDE RECORDS SUMMARY | 2024-09-02 07:50 | XMS_ITS | Patient Health Summary ---
Author Organization [facility] Address [address] [place] [address] Care Team Providers Care Shoer Name Role Phone Unavailable Primary Care Provider Unavailabl e Note from [facility],non-owned Affiliates and Associated Physician Practices is amultiple site organization consisting of ambulatory clinics and hospital sitesin [place], [place], [place] and [place]. This disclosure is being madepursuant to the Care Everywhere program and may not contain all information available regarding this patient. Last updated 18.[facility] Social History Tobacco Use Types Packs/Day Years Used Date Smoking Tobacco: Never Assessed Sex and Gender Information Value Date Recorded Sex Assigned at Not on file Gender Identity Not on file Sexual Orientation Not on file Procedures * DERMATOPATHOLOGY(Performed 03/13/2023) Results * DERMATOPATHOLOGY (03/13/2023 3:33 AM CDT) Case Report Dermatopathology Report Case: [id number] Authorizing Provider: Dereje Vásquez MD Collected: 03/13/2023 03:33 AM Ordering Location: [facility] DermPath Lab Received: 03/15/2023 06:21 AM Pathologist: Nahed Morley MD Specimen: Skin, right 2nd toe 3 1:48 PM CDT DERMATOPATHOLOGY LABORATORY Final Diagnosis Specimen A. 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 Other. Path# [id number] 3 1:48 PM CDT DERMATOPATHOLOGY LABORATORY Gross Description Specimen A: Received is one formalin filled container labeled with the patient's name and designated right 2nd toe. The specimen consists of a shave biopsy measuring 8x6x3 mm. Jar 0. 3 1:48 PM CDT DERMATOPATHOLOGY LABORATORY Microscopic Description Specimen A. SKIN, right 2nd toe: Sections show a proliferation of blood vessels in lobules lined by uniform endothelial cells and by fibrous septa. 3 1:48 PM CDT DERMATOPATHOLOGY LABORATORY Disclaimer An external and internal positive and negative controls are appropriate for the histochemical, immunohistochemical and immunofluorescence stain(s) in this case (if any), except where stated explicitly. The performance characteristics of the stain(s) cited in this report were developed and its performance characteristic determined by the Dermatopathology Laboratory at [facility], directed by Dr. Juventino Morley. These tests need not be, and therefore are not, approved by the [place] Food and Drug Administration. The tests are used for clinical purposes. Billing Codes Specimen Charges Stain Charges 11355 1 3 1:48 PM CDT DERMATOPATHOLOGY LABORATORY Embedded Images 3 1:48 PM CDT DERMATOPATHOLOGY LABORATORY Pathology/Cytolo gy TISSUE SPECIMEN FROM SKIN / Unknown 03/13/2023 3:33 AM CDT 03/15/2023 6:21 AM CDT Dereje Vásquez MD LAB - PATHOLOGY/CYTO LOGY ORDERABLES DERMATOPATHOLOGY LABORATORY [facility] - Department of Dermatology [address] [phone]
--- OUTSIDE RECORDS SUMMARY | 2024-09-02 07:50 | XMS_ITS ---
Author Organization [facility] Address [address] [place] [address] Phone Care Team Providers Care Track Superintendent Name Role Phone Unavailable Unavailable Unavailable Problems Includes: Active, inactive, and resolved Problems All Visits Onset Date Resolved Date Provider Condition S tatus Gerd 08/13/2018 BEENA EDGE DO Active Last Documented On 9 2:08PM ; [facility] Essential Hypertension 08/13/2018 BEENA Taylor DO Active Last Documented On 9 2:16PM ; [facility] Plan of Treatment Findings Encounter Date Laparoscopic Cholecystectomy under general anesthesia CONSULTATION with BEENA EDGE DO 08/13/2018 Last Documented On 9 2:19PM ; [facility] Assessments Includes: Assessments for all patient encounters Findings Encounter Date Chronic Cholecystitis with p ossible polyps CONSULTATION with BEENA EDGE DO 08/13/2018 Last Documented On 9 2:19PM ; [facility] Medical Equipment - Implanted Devices Includes: Current and historical Devices No Medical Equipment Recorded Medications Includes: Current and historical Medications Current Medications (continue as prescribed) Benicar 40MG Oral Tablet 08/13/2018 Provider: Diagnosis: 1 tab po daily Last Documented On 08/13/2018 1:44PM By CHUCK COTTER LPN ; [facility] Lisinopril 20MG Oral Tablet 08/13/2018 Provider: Diagnosis: 1 tab po daily Last Documented On 08/13/2018 1:46PM By CHUCK COTTER LPN ; [facility] hydroCHLOROthiazide 25MG Oral Tablet 08/13/2018 Prov ider: Diagnosis: 1 tab po daily Last Documented On 08/13/2018 1:56PM By CHUCK COTTER LPN ; [facility] Atenolol 50MG Oral Tablet 08/13/2018 Provider: Diagnosis: 1 tab po daily Last Documented On 08/13/2018 1:56PM By CHUCK COTTER LPN ; [facility] Glucosamine HCl Oral Tablet 08/13/2018 Provider: Diagnosis: 1 tab po daily Last Documented On 08/13/2018 1:58PM By CHUCK COTTER LPN ; [facility] Womens Multivitamin Oral Tablet 08/13/2018 Provider: Diagnosis: 1 tab po daily Last Documented On 08/13/2018 1:59PM By CHUCK COTTER LPN ; [facility] Calcium 600MG Oral Tablet 08/13/2018 Provider: Diagnosis: 1 tab po BID Last Documented On 08/13/2018 2:00PM By CHUCK COTTER LPN ; [facility] Lovastatin 20MG Oral Tablet 08/13/2018 Provider: Diagnosis: 1 tab po daily Last Documented On 08/13/2018 1:46PM By CHUCK COTTER LPN ; [facility] amLODIPine Besylate 10MG Oral Tablet 08/13/2018 Prov ider: Diagnosis: 1 tab po daily Last Documented On 08/13/2018 1:45PM By CHUCK COTTER LPN ; [facility] Past Medications on file Colestid 1GM Oral Tablet 08/29/2018 - 09/28/2018 Provider: BEENA Roper Diagnosis: Chronic cholecys titis 2 tablets twice a day Last Documented On 08/29/2018 1:42PM By BEENA EDGE DO ; [facility] Avella 5-325MG Oral Tablet 08/22/2018 - 08/24/2018 Provider: BEENA Roper Diagnosis: Chronic cholecys titis 1 every 6 hours as needed Last Documented On 08/22/2018 9:18AM By BEENA EDGE DO ; [facility] Xardqa-M-Fzuhlmwzevv Powder 08/13/2018 - 08/13/2018 Pr ovider: Diagnosis: 1 tab po daily Last Documented On 08/13/2018 1:57PM By CHUCK COTTER LPN ; [facility] Medications Administered Includes: Administered Medications in patient's chart No Administered Medications Recorded Results Includes: Results from 09/03/2023 through 09/02/2024 No Results Recorded For Specified Dates History of Present Illness History of Present Illness not supported for this document type No History of Present Illness Recorded Social History Description Last Updated Not a current smoker 08/13/2018 Last Documented On 9 2:19PM ; [facility] Not using alcohol 08/13/2018 Last Documented On 9 2:19PM ; [facility] Not using drugs 08/13/2018 Last Documented On 9 2:19PM ; [facility] Smoking status : Never smoker 08/13/2018 Last Documented On 9 2:19PM ; [facility] Procedures and Surgical History Surgical History Last Updated History of cholecystectomy - Laparoscopic for chronic cholecystitis with lithiasis/polyps 08/22/2018 Last Documented On 9 9:03AM ; [facility] Medical History Includes: Medical History in patient's chart Description Last Updated History of hypertension 08/13/2018 Last Documented On 9 2:19PM ; [facility] EGD 07/18/18 ~Colonoscopy 05/28/18 ~Tubal Ligation 1982 08/13/2018 Last Documented On 9 2:19PM ; [facility] Taking medication 08/13/2018 Last Documented On 9 2:19PM ; [facility] Family History Includes: Family History in patient's chart Description Last Updated Family medical history was unknown 08/13 Last Documented On 9 2:19PM ; [facility] Review of Systems Review of Systems not supported for this document type No Review of Systems Recorded Mental Status No Mental Status Recorded Functional Status No Functional Status Recorded Physical Exam Physical Exam not supported for this document type No Physical Exam Recorded Allergies Includes: Active, inactive, and resolved Allergies No Known Allergies Clinical Notes Includes: Signed Clinical Notes starting from 07/08/2022 No Clinical Notes Recorded
--- OUTSIDE RECORDS SUMMARY | 2024-09-02 07:50 | XMS_ITS ---
Care Plan - [facility] Created on: September 02, 2024 JASONRADHA SEALS : 1950 Sex: Female Author Organization [facility] Address [address] [place] [address] Phone Care Team Providers Care Pharmacy Grad Intern Name Role Phone Unavailable Unavailable Unavailable
--- OUTSIDE RECORDS SUMMARY | 2024-09-02 07:50 | XMS_ITS | Referral Summary ---
Author Organization [facility] Address [address] [place] [address] Care Team Providers Care Cold Rolling Coordinator Name Role Phone Unavailable Primary Care Provider Unavailabl e Source Comments [facility],non-owned Affiliates and Associated Physician Practices is amultiple site organization consisting of ambulatory clinics and hospital sitesin [place], [place], [place] and [place]. This disclosure is being madepursuant to the Care Everywhere program and may not contain all information available regarding this patient. Last updated 18.[facility] Social History Tobacco Use Types Packs/Day Years Used Date Smoking Tobacco: Never Assessed Sex and Gender Information Value Date Recorded Sex Assigned at Not on file Gender Identity Not on file Sexual Orientation Not on file Plan of Treatment Not on file
--- OUTSIDE RECORDS SUMMARY | 2024-09-02 07:50 | XMS_ITS | Encounter Summary ---
Author Organization [facility] Address [address] [place] [address] Care Team Providers Care Pediatric Dental Assistant Name Role Phone Unavailable Primary Care Provider Unavailabl e Encounter Details Date Type Department Care Team (Late st Contact Info) Description 03/14/2023 Lab Requisition [facility] - DermPath Lab [address] [place] [id number] Dereje Vásquez MD [address] [place] [address] Social History Tobacco Use Types Packs/Day Years Used Date Smoking Tobacco: Never Assessed Sex and Gender Information Value Date Recorded Sex Assigned at Not on file Gender Identity Not on file Sexual Orientation Not on file documented as of this encounter Plan of Treatment Not on file documented as of this encounter Procedures Procedure Name Priority Date/Time Associated Diagnosis Comments DERMATOPATHOLOGY Routine 03/13/2023 3:33 AM CDT documented in this encounter Results * DERMATOPATHOLOGY (03/13/2023 3:33 AM CDT) Case Report Dermatopathology Report Case: [id number] Authorizing Provider: Dereje Vásquez MD Collected: 03/13/2023 03:33 AM Ordering Location: [facility] Derm[facility] Lab Received: 03/15/2023 06:21 AM Pathologist: Nahed Morley MD Specimen: Skin, right 2nd toe 3 1:48 PM CDT DERMATOPATHOLOGY LABORATORY Final Diagnosis Specimen A. 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 Other. Path# [id number] 3 1:48 PM CDT DERMATOPATHOLOGY LABORATORY Gross [...] characteristic determined by the Dermatopathology Laboratory at [facility], directed by Dr. Juventino Morley. These tests need not be, and therefore are not, approved by the [place] Food and Drug Administration. The tests are used for clinical purposes. Billing Codes Specimen Charges Stain Charges 46780 1 3 1:48 PM CDT DERMATOPATHOLOGY LABORATORY Embedded Images 3 1:48 PM CDT DERMATOPATHOLOGY LABORATORY Pathology/Cytolo gy TISSUE SPECIMEN FROM SKIN / Unknown 03/13/2023 3:33 AM CDT 03/15/2023 6:21 AM CDT Dereje Vásquez MD LAB - PATHOLOGY/CYTO LOGY ORDERABLES DERMATOPATHOLOGY LABORATORY [facility] - Department of Dermatology [address] [phone] documented in this encounter Visit Diagnoses Not on filedocumented in this encounter
--- OUTSIDE RECORDS SUMMARY | 2024-09-02 07:50 | XMS_ITS | Clinical Summary ---
Author Organization [facility] Address [address] [place] [address] Phone Care Team Providers Care Injection Wax Molder Name Role Phone Unavailable Unavailable Unavailable Reason for Visit and Chief Complaint SURGERY IN HOSPITAL Problems Includes: Problems addressed during this encounter and other active Problems All Visits Onset Date Resolved Date Provider Condition S tatus Gerd 08/13/2018 BEENA EDGE DO Active Last Documented On 9 2:08PM ; [facility] Essential Hypertension 08/13/2018 BEENA Taylor DO Active Last Documented On 9 2:16PM ; [facility] Plan of Treatment No Plan of Treatment Recorded Assessments Includes: Assessments from this encounter No Assessments Recorded Medical Equipment - Implanted Devices Includes: Current Devices No Medical Equipment Recorded Medications Includes: Medications discussed during this encounter and other current Medications New / Renewed during this visit BEENA EDGE DO on 08/22/2018 [place] 5-325MG Oral Tablet Provider: LISSET EDGE DO 2 day supply: 10 tablet, 0 refills Diagnosis: Chronic cholecystitis 1 every 6 hours as needed Pharmacy: [facility] [address], [address] - Last Documented On 08/22/2018 9:18AM By BEENA EDGE DO ; [facility] Current Medications (continue as prescribed) Benicar 40MG Oral Tablet 08/13/2018 Provider: Diagnosis: 1 tab po daily Last Documented On 08/13/2018 1:44PM By CHUCK COTTER LPN ; [facility] Lisinopril 20MG Oral Tablet 08/13/2018 Provider: Diagnosis: 1 tab po daily Last Documented On 08/13/2018 1:46PM By CHUCK COTTER LPN ; [facility] hydroCHLOROthiazide 25MG Oral Tablet 08/13/2018 Prov ider: Diagnosis: 1 tab po daily Last Documented On 08/13/2018 1:56PM By CHUCK COTTER LPN ; [facility] Atenolol 50MG Oral Tablet 08/13/2018 Provider: Diagnosis: 1 tab po daily Last Documented On 08/13/2018 1:56PM By CHUCK COTTER LPN ; [facility] Glucosamine HCl Oral Tablet 08/13/2018 Provider: Diagnosis: 1 tab po daily Last Documented On 08/13/2018 1:58PM By CHUCK COTTER LPN ; [facility] Womens Multivitamin Oral Tablet 08/13/2018 Provider: Diagnosis: 1 tab po daily Last Documented On 08/13/2018 1:59PM By CHUCK COTTER LPN ; [facility] Calcium 600MG Oral Tablet 08/13/2018 Provider: Diagnosis: 1 tab po BID Last Documented On 08/13/2018 2:00PM By CHUCK COTTER LPN ; [facility] Lovastatin 20MG Oral Tablet 08/13/2018 Provider: Diagnosis: 1 tab po daily Last Documented On 08/13/2018 1:46PM By CHUCK COTETR LPN ; [facility] amLODIPine Besylate 10MG Oral Tablet 08/13/2018 Prov ider: Diagnosis: 1 tab po daily Last Documented On 08/13/2018 1:45PM By CHUCK CTOTER LPN ; [facility] Medications Administered Includes: Administered Medications from this encounter No Administered Medications Recorded Results Includes: Results discussed during this encounter No Results Recorded For Specified Dates History of Present Illness Includes: History of Present Illness from this encounter No History of Present Illness Recorded Social History No Social History Recorded - Smoking Status Unknown Procedures and Surgical History Surgical History Last Updated History of cholecystectomy - Laparoscopic for chronic cholecystitis with lithiasis/polyps 08/22/2018 Last Documented On 9 9:03AM ; [facility] Medical History Includes: Medical History addressed during this encounter No Medical History Recorded Family History Includes: Family History addressed during this encounter No Family History Recorded Review of Systems Includes: Review of Systems from this encounter No Review of Systems Recorded Mental Status Includes: Mental Status from this encounter No Mental Status Recorded Functional Status Includes: Functional Status from this encounter No Functional Status Recorded Physical Exam Includes: Physical Exam from this encounter No Physical Exam Recorded Allergies Includes: Active Allergies No Known Allergies Encounters Encounter Provider Location Date Check-In Time Check-Out Time Diagnosis SURGERY IN HOSPITAL BEENA EDGE [facility] 9 8:57AM 11:59PM Clinical Notes Includes: Clinical Notes from this encounter No Clinical Notes Recorded
--- OUTSIDE RECORDS SUMMARY | 2024-09-02 07:50 | XMS_ITS | Referral Summary ---
Author Organization [facility] Address [address] [address] Care Team Providers Care Watch Hairspring Assembler Name Role Phone Ho Nazario Primary Care Provider [phone] Allergies No known active allergies Medications amLODIPine [...] (gastroesophageal reflux disease) 9 Essential hypertension 08/13/2018 Social History Tobacco Use Types Packs/Day Years Used Date Smoking Tobacco: Never Assessed Comments Unknown Sex and Gender Information Value Date Recorded Sex Assigned at Not on file Legal Sex Female 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 [employer] Gender Identity Not on file Sexual Orientation Not on file Last Filed Vital Signs Vital Sign Reading Time Taken Comments Blood Pressure 136/90 06/24/2023 3:33 PM MANAGER [employer] Pulse 71 06/24/2023 3:33 PM MANAGER [employer]EL Temperature 36.4 C (97.6 F) 06/24/2023 3:33 PM MANAGER INTEL Respiratory Rate 18 06/24/2023 3:33 PM MANAGER INTEL Oxygen Saturation 97% 06/24/2023 3:33 PM MANAGER INTEL Inhaled Oxygen Concentration - - Weight 108.4 kg (239 lb) 06/24/2023 3:33 PM MANAGER INTEL Height 162.6 cm (5' 4) 06/24/2023 3:33 PM MANAGER INTEL Body Mass Index 41.02 06/24/2023 3:33 PM MANAGER INTEL Plan of Treatment Not [place] [address] [facility] [place] Care Teams Watch Hairspring Assembler Relationship Specialty Start Date End Date Ho Nazario PA [address] [place] [address] PCP - General Family Practice 06/24/23
[2024-09-02 08:15] LABS: Prothrombin Time 20.8 Seconds (9.50-12.1)
[2024-09-30 08:38] LABS: INR 2.4; Prothrombin Time 24.2 Seconds (9.50-12.1)
[2024-10-28 08:40] LABS: INR 2.1; Prothrombin Time 21.9 Seconds (9.50-12.1)
[2024-11-25 08:27] LABS: INR 2.2
== END 2024-12-01 23:59 | disposition home or self-care (01) ==
LOC: CHSLAB 07:51
PROVIDERS: PCP Physician Assistant; Visit Provider Internal Medicine Cardiovascular Disease
DX: I48.91 Unspecified atrial fibrillation (principal)
CPT/HCPCS: 36415; 85610

== ENCOUNTER 2025-03-17 08:27 | Outpatient (RCR) | payer MEDICARE, SELFPAY ==
[2024-12-23 08:52] LABS: INR 2.4; Prothrombin Time 24.6 Seconds (9.50-12.1)
[2025-01-20 09:12] LABS: INR 2.2; Prothrombin Time 23.0 Seconds (9.50-12.1)
[2025-02-18 09:06] LABS: INR 2.3; Prothrombin Time 23.5 Seconds (9.50-12.1)
[2025-03-17 09:06] LABS: INR 2.3; Prothrombin Time 23.5 Seconds (9.50-12.1)
== END 2025-03-23 23:59 | disposition home or self-care (01) ==
LOC: CHSLAB 08:27
PROVIDERS: PCP Physician Assistant; Visit Provider Internal Medicine Cardiovascular Disease
DX: I48.91 Unspecified atrial fibrillation (principal)
CPT/HCPCS: 36415; 85610